=== PATIENT | male | born 1940 | race Caucasian/White ===

== ENCOUNTER → 2019-01-26 | Outpatient (CLI) | payer MEDICARE, BC | END | disposition home or self-care (01) | LOC: RADMRIMAIN 10:40 | PROVIDERS: ATTEND Urology | DX: Z53.9 Procedure and treatment not carried out, unspecified reason (principal) ==

== ENCOUNTER 2020-08-19 10:30 | Emergency (ER) | payer MEDICARE, BC ==
--- NOTE | 2020-08-19 10:41 | ED ---
Fall HPI - General Stated Complaint: Fall, Shoulder Injury Time Seen by Provider: 08/19/20 10:30 Source: RN notes reviewed - History of Present Illness Initial Comments: This is a 79-year-old male who fell today. He complains right shoulder pain and right knee pain. He was brought in by EMS. Pain was 10/10 right shoulder down to about 5/10 after 100 g of fentanyl. He does complain of right shoulder pain and some left elbow pain he has full range of motion left elbow he states. Also of the knee. No head neck or overt back pain at this time no other complaints MD Complaint: fall - Related Data Previous Rx's Medication Instructions Recorded Hydrocodone/Acetaminophen [[place] 1 tab PO Q4HR PRN 3 Days #18 tab 08/19/20 7.5-325] Allergies Allergy/AdvReac Type Severity Reaction Status Date / Time No Known Allergies Allergy Verified 08/19/20 11:12 Review of Systems ROS Statement: Those systems with pertinent positive or pertinent negative responses have been documented in the HPI. ROS Other: All systems not noted in ROS Statement are negative. General Exam - General Exam Comments Initial Comments: This is a well-developed well-nourished awake alert oriented 3 male he demonstrated a [place] Coma Scale of 15 General appearance: alert, anxious Head exam: Present: atraumatic, normocephalic, normal inspection Eye exam: Present: normal appearance, PERRL, EOMI. Absent: scleral icterus, conjunctival injection, periorbital swelling ENT exam: Present: normal exam, mucous membranes moist Neck exam: Present: normal inspection, full ROM. Absent: tenderness, meningismus, lymphadenopathy Respiratory exam: Present: normal lung sounds bilaterally. Absent: respiratory distress, wheezes, rales, rhonchi, stridor Cardiovascular Exam: Present: regular rate, normal rhythm, normal heart sounds. Absent: systolic murmur, diastolic murmur, rubs, gallop, clicks GI/Abdominal exam: Present: soft, normal bowel sounds. Absent: distended, tenderness, guarding, rebound, rigid Extremities exam: Present: tenderness, normal capillary refill, other ([place] left elbow reveals some ecchymosis but no tenderness palpation over the elbow with full range of motion no hand and forearm or arm pain on palpation or shoulder pain. On the right upper extremity there is tenderness palpation over the right shoulder with some anterior fullness noted at ). Absent: pedal edema, joint swelling, calf tenderness Back exam: Present: normal inspection Neurological exam: Present: alert, oriented X3, CN II-XII intact Psychiatric exam: Present: normal affect, normal mood Skin exam: Present: warm, dry, intact, normal color. Absent: rash Course Vital Signs 08/19/20 10:31 Temperature 98.5 F Pulse Rate 84 Respiratory 20 Rate Blood Pressure 137/63 O2 Sat by Pulse 99 Oximetry Medical Decision Making - Medical Decision Making I did discuss findings with patient family also with Dr. Benitez. Patient has good neurovascular evaluation of the right upper extremity he'll be discharged we placed on pain medication as needed for ice and a sling is a follow-up in 2 days in the office with Dr. Benitez. Return parameters were discussed. - Lab Data Result diagrams: 08/19/20 12:03 08/19/20 12:03 Lab Results 08/19/20 08/19/20 Range/Units 12:03 12:03 WBC 9.2 (3.8-10.6) k/uL RBC 4.17 L (4.30-5.90) m/uL Hgb 13.7 (13.0-17.5) gm/dL Hct 43.6 (39.0-53.0) % MCV 104.6 H (80.0-100.0) fL MCH 33.0 (25.0-35.0) pg MCHC 31.5 (31.0-37.0) g/dL RDW 14.4 (11.5-15.5) % Plt Count 211 (150-450) k/uL MPV 7.5 Neutrophils % 89 % Lymphocytes % 7 % Monocytes % 3 % Eosinophils % 0 % Basophils % 0 % Neutrophils # 8.1 H (1.3-7.7) k/uL Lymphocytes # 0.7 L (1.0-4.8) k/uL Monocytes # 0.3 (0-1.0) k/uL Eosinophils # 0.0 (0-0.7) k/uL Basophils # 0.0 (0-0.2) k/uL Macrocytosis Moderate Sodium 140 (137-145) mmol/L Potassium 4.8 (3.5-5.1) mmol/L Chloride 107 (98-107) mmol/L Carbon Dioxide 25 (22-30) mmol/L Anion Gap 8 mmol/L BUN 29 H (9-20) mg/dL Creatinine 1.81 H (0.66-1.25) mg/dL Est GFR (CKD-EPI)AfAm 40 (>60 ml/min/1.73 sqM) Est GFR (CKD-EPI)NonAf 35 (>60 ml/min/1.73 sqM) Glucose 164 H (74-99) mg/dL Calcium 9.1 (8.4-10.2) mg/dL Magnesium 1.9 (1.6-2.3) mg/dL Total Bilirubin 0.5 (0.2-1.3) mg/dL AST 31 (17-59) U/L ALT 16 (4-49) U/L Alkaline Phosphatase 107 (38-126) U/L Creatine Kinase 71 (55-170) U/L Total Protein 6.8 (6.3-8.2) g/dL Albumin 4.1 (3.5-5.0) g/dL - Radiology Data Radiology results: report reviewed (I did review the imaging and report patient does have a proximal humerus fracture displaced. Please see complete report), image reviewed Disposition Clinical Impression: Fall, Closed fracture of right proximal humerus Disposition: HOME SELF-CARE Condition: Good Prescriptions: Hydrocodone/Acetaminophen [[place] 7.5-325] 1 tab PO Q4HR PRN 3 Days #18 tab PRN Reason: Pain Control Is patient prescribed a controlled substance at d/c from ED?: Yes When asked, does pt state using other controlled substances?: No If prescribed controlled substance>3 days was MAPS reviewed?: Prescribed <3 Days If opioid is for acute pain is fill amount 7 days or less?: Yes If Rx opioid, was Start Talking consent form obtained?: Yes Referrals: Rodrigo Louis MD [Primary Care Provider] - 1-2 days Ankush Hernandez MD [STAFF PHYSICIAN] - 1-2 days
[2020-08-19 10:45] VITALS: TEMP 98.5
[2020-08-19] MEDS ORDERED: fentaNYL (PF) 50 MCG/ML 2 ML AMP IVP ONE (11:20)
--- NOTE | 2020-08-19 11:37 | XR ---
Right shoulder HISTORY: Trauma and pain 3 views the right shoulder Right humeral neck fracture is present with displacement, bayonet apposition. No evident dislocation. Arthropathy noted incidentally in the acromioclavicular joint, there is a distal acromial spur. IMPRESSION: Right proximal humerus fracture
--- NOTE | 2020-08-19 12:00 | XR ---
Right knee HISTORY: Trauma and pain 3 views of the right knee Joint spaces notable for loss of height in the medial compartment. There is overlying artifact. Bone mineralization is reduced which could limit evaluation. Alignment is maintained. No evident dislocati on or joint effusion. Atherosclerotic vascular calcifications are present. There is spurring at the p atellofemoral joint. IMPRESSION: Osteoarthritis. No acute fracture or dislocation.
--- NOTE | 2020-08-19 12:03 | XR ---
EXAMINATION TYPE: XR chest 1V DATE OF EXAM: 08/19/2020 COMPARISON: NONE HISTORY: Trauma and pain TECHNIQUE: Single frontal view of the chest is obtained. FINDINGS: Heart is enlarged. Technique is apical lordotic. No evident pneumothorax or pleural effusi on. Proximal right humeral fracture shows bayonet apposition. Pulmonary vascularity and andrew within n ormal limits. Patient is rotated. IMPRESSION: Cardiomegaly. Fracture proximal right humerus. Exam somewhat limited technically.
[2020-08-19 12:10] LABS: Basophils % (A) 0 %; Eosinophils % (A) 0 %; HCT 43.6 % (39.0-53.0); HGB 13.7 gm/dL (13.0-17.5); Lymphocytes # (A) 0.7 k/uL (1.0-4.8); Lymphocytes % (A) 7 %; MCHC 31.5 g/dL (31.0-37.0); MCV 104.6 fL (80.0-100.0); Macrocytosis Moderate; Mean Platelet Volume 7.5; Monocytes # (A) 0.3 k/uL (0-1.0); Monocytes % (A) 3 %; Neutrophils # (A) 8.1 k/uL (1.3-7.7); Neutrophils % (A) 89 %; Platelet Count 211 k/uL (150-450); RBC 4.17 m/uL (4.30-5.90); RDW 14.4 % (11.5-15.5); WBC 9.2 k/uL (3.8-10.6)
[2020-08-19 12:22] LABS: Albumin 4.1 g/dL (3.5-5.0); Calcium 9.1 mg/dL (8.4-10.2); Magnesium 1.9 mg/dL (1.6-2.3); Potassium 4.8 mmol/L (3.5-5.1); Total Bilirubin 0.5 mg/dL (0.2-1.3); Total Protein 6.8 g/dL (6.3-8.2)
[2020-08-19] MEDS ORDERED: ONDANSETRON 4 MG/2 ML VIAL IVP STA (13:00)
[2020-08-19 13:07] VITALS: BP 105/60; PULSE 79; RESP 22
== END 2020-08-19 13:50 | disposition home or self-care (01) ==
LOC: EC 10:30
DX: S42.201A Unspecified fracture of upper end of right humerus, initial encounter for closed fracture (principal); W19.XXXA Unspecified fall, initial encounter
CPT/HCPCS: 36415; 80053; 82550; 83735; 85025; 73030; 73562; 71045; 99284; 96374; 96375; J2405; J3010

== ENCOUNTER 2020-09-12 18:33 | Inpatient (IN) | payer MEDICARE, BC ==
[2020-09-12] MEDS ORDERED: SODIUM CHLORIDE 0.9% 1,000 ML IV STA (19:11)
--- NOTE | 2020-09-12 20:15 | CT ---
EXAMINATION TYPE: CT angio thor/abd pel aorta DATE OF EXAM: 09/12/2020 COMPARISON: None HISTORY: Chest/back pain. Concern for dissection. CT DLP: 2626.4 mGycm Automated exposure control for dose reduction was used. CONTRAST: Performed with IV Contrast, patient injected with 100 mL of Isovue 370. Images obtained of the chest without contrast. Images obtained from the thoracic inlet to the floor t he pelvis with IV contrast. There are 3-D post processed images. There is subsegmental atelectasis at the lung bases. Heart is enlarged. There is no pericardial effus ion. There is no mediastinal adenopathy. There are no hilar masses. There is coronary artery calcification . Thoracic aorta is intact. There is no aneurysm or dissection. I see no evidence of filling defect o f the pulmonary arteries. There is arterial flow in the superior mesenteric artery and the celiac artery. There is arterial timur w in the renal and iliac and femoral arteries. There is no evidence of arterial aneurysm or dissectio n. I see no significant hemodynamic stenosis. There is mild plaque formation. There is symmetric mild renal atrophy. There is 2 similar cortical cyst anterior left kidney. Liver spleen stomach pancreas gallbladder appear intact. The bile ducts are not dilated. There is no retroperitoneal adenopathy. Ureters are not dilated. Bladder distends smoothly. There is no ascites or free air. There is no bowel obstruction. There is no mesenteric edema. Exam limited by patient's size. Thoracic and lumbar vertebra appear intact. There is no compression fracture. The sternum is intact. The bony pelvis appears intact. IMPRESSION: There is mild atherosclerotic vascular disease. No evidence of arterial aneurysm or dissection. No ev idence of pulmonary embolism. Mild renal atrophy. Patchy subsegmental atelectasis at the lung bases..
[2020-09-12] MEDS ORDERED: diphenhydrAMINE 25 MG CAP PO STA (20:42)
[2020-09-12] MEDS ORDERED: FAMOTIDINE 20 MG TAB PO STA (20:42)
[2020-09-12] MEDS ORDERED: SODIUM CHLORIDE 0.9% 1,000 ML IV ONE ×2 (20:43→21:57)
[2020-09-12 21:02] LABS: Basophils % (A) 0 %; Eosinophils % (A) 0 %; HCT 37.4 % (39.0-53.0); HGB 12.5 gm/dL (13.0-17.5); Lymphocytes # (A) 0.4 k/uL (1.0-4.8); Lymphocytes % (A) 4 %; MCH 34.5 pg (25.0-35.0); MCHC 33.4 g/dL (31.0-37.0); MCV 103.3 fL (80.0-100.0); Macrocytosis Slight; Monocytes # (A) 0.6 k/uL (0-1.0); Monocytes % (A) 5 %; Neutrophils # (A) 9.9 k/uL (1.3-7.7); Neutrophils % (A) 90 %; Platelet Count 203 k/uL (150-450); RBC 3.62 m/uL (4.30-5.90); RDW 13.7 % (11.5-15.5)
[2020-09-12 21:19] LABS: Albumin 3.2 g/dL (3.5-5.0); Calcium 8.9 mg/dL (8.4-10.2); Magnesium 1.9 mg/dL (1.6-2.3); Potassium 5.3 mmol/L (3.5-5.1); Total Bilirubin 0.5 mg/dL (0.2-1.3); Total Protein 5.8 g/dL (6.3-8.2)
[2020-09-12 21:20] LABS: INR 0.9 (<1.2)
--- NOTE | 2020-09-12 21:20 | ED ---
Chest Pain HPI - General Chief Complaint: Chest Pain Stated Complaint: back & chest pain Time Seen by Provider: 09/12/20 18:51 Source: patient, EMS Mode of arrival: EMS Limitations: no limitations - History of Present Illness Initial Comments: Patient is an 80-year-old male with past medical history remarkable for hypertension, diabetes, CKD as well as a recent right shoulder fracture who presents to the emergency department complaining of a 5 hour period of time in which is experienced in substernal and mid back pain between the shoulder blades. He describes it as a sharp sensation that does not radiate on the chest. He is also stating that he is having back pain that is sharp and strong, but has resolved somewhat since earlier. He has not taken any medications for pain. Patient has been somewhat debilitated at home secondary to his right arm/shoulder fracture. He denies any shortness of breath. He denies any fevers, chills, cough. States the pain is worse with certain positions and movement. He states it is improved when he sits still. Denies any nausea, abdominal pain. Denies any headache, weakness, numbness. Patient ambulates with a cane at baseline but has been more debilitated since his right shoulder fracture. - Related Data Previous Rx's Medication Instructions Recorded Hydrocodone/Acetaminophen [[place] 1 tab PO Q4HR PRN 3 Days #18 tab 08/19/20 7.5-325] Allergies Allergy/AdvReac Type Severity Reaction Status Date / Time No Known Allergies Allergy Verified 09/12/20 18:50 Review of Systems ROS Statement: Those systems with pertinent positive or pertinent negative responses have been documented in the HPI. Review of Systems: CONST: Denies fever EYES: Denies blurry vision ENT: Denies nasal congestion C/V: Endorses chest pain RESP: Denies shortness of breath GI: Denies abdominal pain : Denies dysuria SKIN: Denies rash. MSK: Endorses back pain NEURO: Denies headache ROS Other: All systems not noted in ROS Statement are negative. EKG Findings - EKG Comments: EKG Findings:: 12-lead Electrocardiogram Interpretation Note. EKG was reviewed and interpreted by myself. 12-lead ECG performed at 1842 is interpreted by me as revealing normal sinus rhythm at a rate of 97 beats per minute. Right axis deviation. MI interval is 170 ms, QRS ration is 76 seconds, QTC is 426 ms.. There were no ST or T wave abnormalities to suggest myocardial ischemia or injury. R wave progression across the precordium was satisfactory. By my interpretation this EKG is non-diagnostic for acute ischemia. - EKG Results: EKG: interpreted by ROSALIO Past Medical History Past Medical History: Diabetes Mellitus, Hypertension, Renal Disease Additional Past Medical History / Comment(s): right humerus fracture History of Any Multi-Drug Resistant Organisms: None Reported Past Surgical History: No Surgical Hx Reported Past Psychological History: No Psychological Hx Reported Smoking Status: Never smoker Past Alcohol Use History: Occasional General Exam - General Exam Comments Initial Comments: Constitutional: Blood pressure was 101/41, pulse was 99, respirations were 18, pulse oximetry was 99% on room air, temperature was 97.6. General: Percent mild to moderate distress secondary to back pain and chest pain. HEAD: Normal with no signs of head trauma. EYES: PERRLA, EOMI, conjunctiva normal, no discharge. ENT: Hearing grossly intact, normal oropharynx. RESPIRATORY: Clear breath sounds bilaterally. No wheezes, rales, or rhonchi. C/V: Regular rate and rhythm. S1 and S2 auscultated, no edema, peripheral pulses 2+ and intact throughout. Patient's chest pain is reproducible on palpation. ABD: Abd is soft, nontender, nondistended EXT: Patient has cast over his right shoulder. Remainder extremities have no obvious deformity. Patient is no cervical spine tenderness to palpation but does have some very mild mid thoracic spine tenderness palpation that radiates into the bilateral paraspinal muscles on either side. No obvious deformity. SKIN: No rashes or lesions observed on exposed skin. NEURO: Alert and oriented 4. No focal sensory strength deficits. Limitations: no limitations Course Vital Signs 09/12/20 09/12/20 09/12/20 18:45 22:23 22:24 Temperature 97.6 F Pulse Rate 99 92 91 Respiratory 18 18 Rate Blood Pressure 101/41 104/58 O2 Sat by Pulse 99 98 Oximetry Chest Pain MDM - Core Measures AMI Core Measures Followed: Yes - MDM Based on the patient's presentation and physical exam, I'm concerned for possible cardiac primary cause for his current symptoms. It is also possible she is expressing muscular skeletal pain. I'm primarily concerned for an aortic dissection especially with his chest pain back pain that was acute in onset. Therefore we will start an IV and obtained a cardiac work up included troponins, EKG and order a CT angiogram of the thoracic and abdominal aorta. I signed off on imaging prior to results of laboratory studies as I believe that the benefits far outweigh the risks. I did speak with the patient regarding this and he was in agreement with this plan. He will receive a 1 L fluid bolus. Patient already received aspirin as well as Toradol on the way to the hospital by EMS. He'll be connected to continuous cardiac monitoring while in the department. Patient was in agreement this plan. HEART score is 5. Patient's EKG is not concerning for acute ischemia. Patient's CT angiogram did not reveal acute aortic dissection. It did reveal mild atherosclerotic vascular disease. There is also mild renal atrophy in the setting of CK D. Laboratory studies were remarkable for a macrocytic anemia told 0.5, a mild leukocytosis of 1.0 which is likely reactive patient does have mild hyperkalemia at 5.3 without EKG changes. Patient has an elevated creatinine above baseline at 2.27. BUN at 65. This is in the setting of CK D, where his baseline is usually around 1.5 creatinine. Urinalysis was unremarkable. Patient's troponin was negative. On reevaluation, patient's blood pressure is improved and stable systolics ranging from 100-110. He states that his pain is improved. I did inform him of the results of his imaging and workup. 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 Patient also receive medications for his acute hyperkalemia. The patient was in agreement with this plan. He did request CPAP at night that placed the order. Patient will require admission to a telemetry bed. The patient's PCP admits to [facility], and I spoke with the PA over the phone who agreed to accept the admission. Patient was administered albuterol, 10 units insulin, 1 amp of D50 as well as Kayexalate for his hyperkalemia. He is not requiring calcium at this time as there are no EKG changes. He was given an additional fluid bolus and will be placed on IV and fluids. The patient was in agreement with this plan. The patient was therefore admitted in fair condition. PT and OT consults were placed by myself. Disposition Clinical Impression: Musculoskeletal pain, Chest pain of unknown etiology, CRISTIAN (acute kidney injury), CKD (chronic kidney disease), Hyperkalemia, Dehydration, Debility, Closed fracture of right proximal humerus Disposition: ADMITTED IP TO THIS HOSP Condition: Fair Referrals: Rodrigo Louis MD [Primary Care Provider] - 1-2 days Decision to Admit Reason: Admit from EC
[2020-09-12 21:21] LABS: Partial Thromboplastin Time 22.4 sec (22.0-30.0); Prothrombin Time 10.1 sec (9.0-12.0)
[2020-09-12 21:37] LABS: Appearance,Urine Clear (Clear); Bilirubin,Urine Negative (Negative); Blood,Urine Negative (Negative); Color,Urine Yellow; Glucose,Urine (UA) Negative (Negative); Ketones,Urine Negative (Negative); Leukocyte Esterase,Urine Negative (Negative); Nitrite,Urine Negative (Negative); Protein,Urine Negative (Negative); Specific Gravity,Urine 1.041 (1.001-1.035); Urobilinogen,Urine <2.0 mg/dL (<2.0)
[2020-09-12] MEDS ORDERED: DEXTROSE 50% SYRINGE 50 ML IVP STA (21:48)
[2020-09-12] MEDS ORDERED: ALBUTEROL NEBULIZED 2.5 MG/3 ML INHALATION STA (21:48)
[2020-09-12] MEDS ORDERED: SODIUM POLYSTYRENE SULFONATE 15 GM/60 ML BOTTLE PO STA (21:48)
[2020-09-12] MEDS ORDERED: INSULIN ASPART (NovoLOG) 100 UNIT/ML VIAL SQ STA (21:50)
[2020-09-12] MEDS ORDERED: NALOXONE 0.4 MG/ML 1 ML VIAL IV PRN (21:57)
[2020-09-13] MEDS ORDERED: Acetaminophen-Codeine 300-30mg TAB PO PRN (00:16)
[2020-09-13] MEDS: ACETAMINOPHEN TAB 325 MG TAB PO PRN ×2 (02:08→08:23)
[2020-09-13 04:53] LABS: Albumin 2.9 g/dL (3.5-5.0); Calcium 8.8 mg/dL (8.4-10.2); Magnesium 1.9 mg/dL (1.6-2.3); Potassium 4.7 mmol/L (3.5-5.1); Total Bilirubin 0.8 mg/dL (0.2-1.3); Total Protein 5.5 g/dL (6.3-8.2)
[2020-09-13 05:43] LABS: Basophils % (A) 0 %; Eosinophils % (A) 0 %; HGB 12.1 gm/dL (13.0-17.5); Lymphocytes # (A) 0.6 k/uL (1.0-4.8); Lymphocytes % (A) 5 %; MCH 34.2 pg (25.0-35.0); MCHC 32.8 g/dL (31.0-37.0); MCV 104.6 fL (80.0-100.0); Macrocytosis Slight; Mean Platelet Volume 6.9; Monocytes # (A) 0.8 k/uL (0-1.0); Monocytes % (A) 7 %; Neutrophils % (A) 87 %; Platelet Count 191 k/uL (150-450); RBC 3.54 m/uL (4.30-5.90); RDW 13.7 % (11.5-15.5); WBC 11.5 k/uL (3.8-10.6)
[2020-09-13 07:02] LABS: Glucose,Whole Blood 141 mg/dL (75-99)
[2020-09-13] MEDS: CHOLECALCIFEROL 25 MCG (1000 IU) TABLET PO SCH (08:20)
[2020-09-13] MEDS: FOLIC ACID 1 MG TAB PO SCH (08:20)
[2020-09-13] MEDS: PIOGLITAZONE 45 MG TAB PO SCH (08:20)
[2020-09-13] MEDS: CYANOCOBALAMIN 500 MCG TAB PO SCH (08:21)
[2020-09-13] MEDS: SODIUM CHLORIDE 0.9% 1,000 ML IV SCH ×2 (08:30→19:41)
[2020-09-13] MEDS ORDERED: NON FORMULARY DRUG (Garlic [Garlic] 1 EACH Tablet) PO SCH (09:00)
[2020-09-13] MEDS ORDERED: amLODIPine 5 MG TAB PO SCH (09:00)
[2020-09-13] MEDS ORDERED: NON FORMULARY DRUG (Cinnamon Bark [Cinnamon] 500 MG Capsule) PO SCH (09:00)
[2020-09-13] MEDS ORDERED: HEPARIN SODIUM,PORCINE/PF 5,000 UNIT/0.5 ML SYRINGE SQ SCH (09:00)
[2020-09-13] MEDS: PRAVASTATIN SODIUM 20 MG TAB PO SCH (09:46)
[2020-09-13] MEDS ORDERED: traMADol 50 MG TAB PO PRN (10:49)
--- NOTE | 2020-09-13 11:14 | US ---
EXAMINATION TYPE: US kidneys/renal and bladder DATE OF EXAM: 09/13/2020 COMPARISON: CT 09/12/2020 CLINICAL HISTORY: CRISTIAN. CRISTIAN Very limited exam due to body habitus and patient unable to roll. EXAM MEASUREMENTS: Right Kidney: 13.5 x 5.0 x 4.8 cm Left Kidney: Unable to visualize due to body habitus patient unable to roll. Right Kidney: Limited Left Kidney: Not able to visualize Bladder: Not fully distended Bilateral Jets seen: NO There is no ascites. IMPRESSION: Exam is limited. No hydronephrosis noted on CT from previous day, left cortical cyst seen on prior CT not confirmed on today's ultrasound. No evident renal calculus.
[2020-09-13 12:08] LABS: Glucose,Whole Blood 150 mg/dL (75-99)
--- NOTE | 2020-09-13 12:12 | P.HPIM ---
History of Present Illness Patient is a pleasant 80-year-old male came in with muscular skeletal chest pain in the right shoulder area radiating across the chest and in the midsternal area and also going to the back which he changes with the movement of the hand. Patient has sharp nonradiating pain. She and pain was moderate severe and today it's much better and about 1/10 today. Patient is basically admitted for the acute renal failure with a serum creatinine of 2.3 patient does have problems with urination does have BPH patient had urinary retention patient had a straight catheterization we'll recheck again in and. Patient is also hyponatremic hypokalemic all of which were can be secondary to acute renal failure and obstructive uropathy. Nephrology was consulted and also ordered a renal ultrasound. Urine osmolality urine random sodium urine random creatinine were ordered as well along with urine eosinophils. UA didn't show any proteinur ia patient baseline creatinine is around 1.8. REVIEW OF SYSTEMS: CONSTITUTIONAL: No fever, no malaise, no fatigue. HEENT: No recent visual problems or hearing problems. Denied any sore throat. CARDIOVASCULAR: No orthopnea, PND, no palpitations, no syncope. PULMONARY: No shortness of breath, no cough, no hemoptysis. GASTROINTESTINAL: No diarrhea, no nausea, no vomiting, no abdominal pain. NEUROLOGICAL: No headaches, no weakness, no numbness. HEMATOLOGICAL: Denies any bleeding or petechiae. GENITOURINARY: Denies any burning micturition, frequency, or urgency. MUSCULOSKELETAL/RHEUMATOLOGICAL: As mentioned in HPI ENDOCRINE: Denies any polyuria or polydipsia. The rest of the 14-point review of systems is negative. PHYSICAL EXAMINATION: GENERAL: The patient is alert and oriented x3, not in any acute distress. Well developed, well nourished. HEENT: Pupils are round and equally reacting to light. EOMI. No scleral icterus. No conjunctival pallor. Normocephalic, atraumatic. No pharyngeal erythema. No thyromegaly. CARDIOVASCULAR: S1 and S2 present. No murmurs, rubs, or gallops. PULMONARY: Chest is clear to auscultation, no wheezing or crackles. ABDOMEN: Soft, nontender, nondistended, normoactive bowel sounds. No palpable organomegaly. MUSCULOSKELETAL: has a right arm sling and patient right shoulder is postsurgical a pack EXTREMITIES: No cyanosis, clubbing, or pedal edema. NEUROLOGICAL: Gross neurological examination did not reveal any focal deficits. SKIN: No rashes. -Right shoulder and right chest pain and musculoskeletal noncardiac will not need any further intervention troponin is negative EKG showed some nonspecific ST-T wave changes in the lateral. -Acute renal failure probably multifactorial including prerenal azotemia as well as the obstructive uropathy patient is also hypotensive hold off any antidepressants medications further workup as mentioned above, ultrasound of the kidneys did not show any significant abnormality patient had a CT abdomen earlier which showed hydronephrosis which improved after probable placement of Nguyen catheter. Nephrology will be consulted, continue with IV fluids -Macrocytic anemia will obtain B12 levels -Hyponatremia hypovolemic as well as secondary to obstructive uropathy -Hyperkalemia secondary to obstructive uropathy -Obstructive sleep apnea and obesity patient uses CPAP machine at home -Type 2 diabetes mellitus -Hypertension presently hypotensive hold hold off on antidepressant medications -DVT to prophylaxis with the heparin Past Medical History Past Medical History: Diabetes Mellitus, Hypertension, Renal Disease Additional Past Medical History / Comment(s): right humerus fracture History of Any Multi-Drug Resistant Organisms: None Reported Past Surgical History: No Surgical Hx Reported Past Anesthesia/Blood Transfusion Reactions: No Reported Reaction Past Psychological History: No Psychological Hx Reported Smoking Status: Never smoker Past Alcohol Use History: Occasional Medications and Allergies Home Medications Medication Instructions Recorded Confirmed Type Allopurinol [Zyloprim] 100 mg PO HS 09/12/20 09/12/20 History Cholecalciferol [Vitamin D3 (25 25 mcg PO DAILY 09/12/20 09/12/20 History Mcg = 1000 Iu)] Cinnamon Bark [Cinnamon] 500 mg PO DAILY 09/12/20 09/12/20 History Cyanocobalamin (Vitamin B-12) 1,000 mcg PO DAILY 09/12/20 09/12/20 History [Vitamin B-12] Folic Acid 0.4 mg PO DAILY 09/12/20 09/12/20 History Garlic 1 tab PO DAILY 09/12/20 09/12/20 History Pioglitazone [Actos] 45 mg PO DAILY 09/12/20 09/12/20 History Pravastatin Sodium [Pravachol] 20 mg PO HS 09/12/20 09/12/20 History Saw [place] 500 mg PO BID 09/12/20 09/12/20 History Selenium 200 mcg PO DAILY 09/12/20 09/12/20 History amLODIPine [Norvasc] 5 mg PO DAILY 09/12/20 09/12/20 History Allergies Allergy/AdvReac Type Severity Reaction Status Date / Time No Known Allergies Allergy Verified 09/12/20 22:46 Physical Exam Vitals: Vital Signs Temp Pulse Pulse Resp BP BP Pulse Ox 09/13/20 08:10 97.7 F 85 95/60 98 09/13/20 08:00 85 09/13/20 07:24 97 09/12/20 23:52 99.8 F H 89 16 111/60 98 09/12/20 23:43 100 09/12/20 22:37 90 09/12/20 22:24 91 09/12/20 22:23 92 18 104/58 98 09/12/20 18:45 97.6 F 99 18 101/41 99 Intake and Output 09/12/20 09/13/20 09/13/20 22:59 06:59 14:59 Intake Total 200 Output Total 450 Balance -250 Intake: Oral 200 Output: Urine 450 Straight 450 Other: Voiding Method Urinal Urinal # Voids 2 Weight 79.832 kg Results CBC & Chem 7: 09/13/20 04:10 09/13/20 04:10 Labs: Abnormal Lab Results - Last 24 Hours (Table) 09/12/20 09/12/20 09/12/20 Range/Units 19:53 19:53 21:17 WBC 11.0 H (3.8-10.6) k/uL RBC 3.62 L (4.30-5.90) m/uL Hgb 12.5 L (13.0-17.5) gm/dL Hct 37.4 L (39.0-53.0) % MCV 103.3 H (80.0-100.0) fL Neutrophils # 9.9 H (1.3-7.7) k/uL Lymphocytes # 0.4 L (1.0-4.8) k/uL Sodium 134 L (137-145) mmol/L Potassium 5.3 H (3.5-5.1) mmol/L BUN 65 H (9-20) mg/dL Creatinine 2.27 H (0.66-1.25) mg/dL Glucose 204 H (74-99) mg/dL POC Glucose (mg/dL) (75-99) mg/dL Total Protein 5.8 L (6.3-8.2) g/dL Albumin 3.2 L (3.5-5.0) g/dL Ur Specific [place] 1.041 H (1.001-1.035) 09/13/20 09/13/20 09/13/20 Range/Units 04:10 04:10 07:01 WBC 11.5 H (3.8-10.6) k/uL RBC 3.54 L (4.30-5.90) m/uL Hgb 12.1 L (13.0-17.5) gm/dL Hct 37.0 L (39.0-53.0) % MCV 104.6 H (80.0-100.0) fL Neutrophils # 10.0 H (1.3-7.7) k/uL Lymphocytes # 0.6 L (1.0-4.8) k/uL Sodium 134 L (137-145) mmol/L Potassium (3.5-5.1) mmol/L BUN 64 H (9-20) mg/dL Creatinine 2.30 H (0.66-1.25) mg/dL Glucose 111 H (74-99) mg/dL POC Glucose (mg/dL) 141 H (75-99) mg/dL Total Protein 5.5 L (6.3-8.2) g/dL Albumin 2.9 L (3.5-5.0) g/dL Ur Specific [employer] [place] (1.001-1.035) Thrombosis Risk Factor Assmnt - Choose All That Apply Each Factor Represents 1 point: Obesity (BMI >25) Each Risk Factor Represents 3 Points: Age 75 years or older Thrombosis Risk Factor Assessment Total Risk Factor Score: 4 Thrombosis Risk Factor Assessment Level: Moderate Risk
[2020-09-13 17:49] LABS: Glucose,Whole Blood 142 mg/dL (75-99)
[2020-09-13 20:37] LABS: Glucose,Whole Blood 171 mg/dL (75-99)
[2020-09-13] MEDS: HEPARIN SODIUM,PORCINE/PF 5,000 UNIT/0.5 ML SYRINGE SQ SCH (20:41)
[2020-09-13] MEDS: allopurinoL 100 MG TAB PO SCH (20:42)
[2020-09-13] MEDS: MELATONIN 3 MG TABLET PO PRN (20:42)
[2020-09-14] MEDS: SODIUM CHLORIDE 0.9% 1,000 ML IV SCH (04:22)
[2020-09-14 07:23] LABS: Glucose,Whole Blood 129 mg/dL (75-99)
[2020-09-14] MEDS: HEPARIN SODIUM,PORCINE/PF 5,000 UNIT/0.5 ML SYRINGE SQ SCH ×2 (08:19→20:21)
[2020-09-14] MEDS: FOLIC ACID 1 MG TAB PO SCH (08:20)
[2020-09-14] MEDS: PIOGLITAZONE 45 MG TAB PO SCH (08:20)
[2020-09-14] MEDS: PRAVASTATIN SODIUM 20 MG TAB PO SCH (08:20)
[2020-09-14] MEDS: CYANOCOBALAMIN 500 MCG TAB PO SCH (08:20)
[2020-09-14] MEDS: CHOLECALCIFEROL 25 MCG (1000 IU) TABLET PO SCH (08:20)
--- NOTE | 2020-09-14 10:26 | P.NPCON ---
History of Present Illness - Reason for Consult acute renal failure, chronic renal failure - History of Present Illness Reason for sedation: Acute kidney injury on chronic kidney disease History of present illness: The patient is a 80-year-old male seen in consultation for acute kidney injury on chronic kidney disease. Patient has chronic kidney disease stage IIIB with baseline creatinine near 2 secondary to nephrosclerosis. Patient presented to the hospital with pain in his upper back this been going on for quite some time. Patient did sustain a fall on and fractured his arm. He underwent thoracic aorta CT with IV contrast on admission which revealed no acute changes. Creatinine was 2.27 on admission and 2.3 as of yesterday. He is maintained on IV fluids. Denies chest pain or shortness of breath. Good urine output. He did require straight catheterization this admission. Oral intake is fair. No vomiting or diarrhea. Blood pressure stable. No fever or chills. No cough. Denies use of nonsteroidals. He does have long-standing history of diabetes. Vital signs are stable. General: The patient appeared well nourished and normally developed. HEENT: Head exam is unremarkable. Neck is without jugular venous distension. LUNGS: Breath sounds decreased. HEART: Rate and Rhythm are regular. ABDOMEN: Soft, no distention. Obese. EXTREMITITES: Trace edema. Past Medical History Past Medical History: Diabetes Mellitus, Hypertension, Renal Disease Additional Past Medical History / Comment(s): right humerus fracture History of Any Multi-Drug Resistant Organisms: None Reported Past Surgical History: No Surgical Hx Reported Past Anesthesia/Blood Transfusion Reactions: No Reported Reaction Past Psychological History: No Psychological Hx Reported Smoking Status: Never smoker Past Alcohol Use History: Occasional Medications and Allergies Home Medications Medication Instructions Recorded Confirmed Type Allopurinol [Zyloprim] 100 mg PO HS 09/12/20 09/12/20 History Cholecalciferol [Vitamin D3 (25 25 mcg PO DAILY 09/12/20 09/12/20 History Mcg = 1000 Iu)] Cinnamon Bark [Cinnamon] 500 mg PO DAILY 09/12/20 09/12/20 History Cyanocobalamin (Vitamin B-12) 1,000 mcg PO DAILY 09/12/20 09/12/20 History [Vitamin B-12] Folic Acid 0.4 mg PO DAILY 09/12/20 09/12/20 History Garlic 1 tab PO DAILY 09/12/20 09/12/20 History Pioglitazone [Actos] 45 mg PO DAILY 09/12/20 09/12/20 History Pravastatin Sodium [Pravachol] 20 mg PO HS 09/12/20 09/12/20 [address] [facility] 500 mg PO BID 09/12/20 09/12/20 History Selenium 200 mcg PO DAILY 09/12/20 09/12/20 History amLODIPine [Norvasc] 5 mg PO DAILY 09/12/20 09/12/20 History Furosemide [Lasix] 20 mg PO DAILY 09/13/20 09/13/20 History Allergies Allergy/AdvReac Type Severity Reaction Status Date / Time No Known Allergies Allergy Verified 09/12/20 22:46 Physical Exam Vitals: Vital Signs Temp Pulse Resp BP Pulse Ox 09/14/20 07:00 98.0 F 91 21 112/66 97 09/14/20 02:00 98.3 F 87 18 101/58 100 09/13/20 20:09 97 09/13/20 20:00 98.5 F 91 17 83/40 94 L 09/13/20 15:00 97.8 F 85 16 93/54 100 Intake and Output 09/13/20 09/14/20 09/14/20 22:59 06:59 14:59 Intake Total 1000 800 180 Output Total 350 200 Balance 650 800 -20 Intake: IV 800 800 Sodium Chloride 0.9% 1, 800 800 000 ml @ 100 mls/hr IV . Q10H ONE Rx#:[id number] Oral 200 180 Output: Urine 350 200 Other: Voiding Method Urinal Urinal # Voids 2 2 Results - Lab Results Most recent lab results Calcium 8.8 mg/dL (8.4-10.2) 09/13/20 04:10 Magnesium 1.9 mg/dL (1.6-2.3) 09/13/20 04:10 09/13/20 04:10 09/13/20 04:10 Assessment and Plan Plan: Assessment: 1. Acute kidney injury versus progression of underlying chronic kidney disease. Patient has chronic kidney disease stage IIIB secondary to nephrosclerosis.. Baseline creatinine near 2. Creatinine 2.3 as of yesterday. He did receive IV contrast on September 12. He did have urinary retention this admission requiring straight catheterization. No evidence of hydronephrosis noted on imaging. UA benign. 2. Diabetes mellitus. 3. Shoulder pain. He did sustain a fall at and sustained right arm fracture. No evidence of aneurysm on thoracic CT. Plan: Hep-Lock IV fluids. Encourage oral intake. Avoid nephrotoxins. Monitor renal function as he received IV contrast on September 12. Continue to monitor serial postvoid residuals to make sure no urinary retention. Thank you for the consultation. I will continue to follow the patient with you during his hospital stay.
[2020-09-14 10:59] LABS: African American GFR (CKD) 31.6 (60.0-200.0); Anion Gap 6.4 mmol/L (4.00-12.00); BUN/Creat Ratio 27.27 Ratio (12.00-20.00); Calcium 7.8 mg/dL (8.7-10.3); Carbon Dioxide 22.6 mmol/L (21.6-31.8); Non-African American GFR(CKD) 27.3 (60.0-200.0); Potassium 4.8 mmol/L (3.5-5.5)
[2020-09-14 11:51] LABS: Glucose,Whole Blood 141 mg/dL (75-99)
[2020-09-14] MEDS: ONDANSETRON 4 MG/2 ML VIAL IVP PRN (17:10)
[2020-09-14 17:19] LABS: Glucose,Whole Blood 142 mg/dL (75-99)
[2020-09-14] MEDS ORDERED: MAGNESIUM HYDROXIDE 2,400 MG/10 ML CUP PO PRN (17:55)
[2020-09-14] MEDS: MELATONIN 3 MG TABLET PO PRN (20:21)
[2020-09-14] MEDS: allopurinoL 100 MG TAB PO SCH (20:21)
[2020-09-14 20:28] LABS: Glucose,Whole Blood 208 mg/dL (75-99)
[2020-09-15] MEDS: ONDANSETRON 4 MG/2 ML VIAL IVP PRN (01:56)
[2020-09-15 07:21] LABS: Glucose,Whole Blood 154 mg/dL (75-99)
[2020-09-15] MEDS: CHOLECALCIFEROL 25 MCG (1000 IU) TABLET PO SCH (07:56)
[2020-09-15] MEDS: FOLIC ACID 1 MG TAB PO SCH (07:56)
[2020-09-15] MEDS: PRAVASTATIN SODIUM 20 MG TAB PO SCH (07:57)
[2020-09-15] MEDS: HEPARIN SODIUM,PORCINE/PF 5,000 UNIT/0.5 ML SYRINGE SQ SCH ×2 (07:57→21:15)
[2020-09-15] MEDS: PIOGLITAZONE 45 MG TAB PO SCH (07:57)
[2020-09-15] MEDS: CYANOCOBALAMIN 500 MCG TAB PO SCH (07:57)
[2020-09-15 09:20] LABS: Basophils # (A) 0.02 X 10*3/uL (0.00-0.10); Basophils % (A) 0.3 %; Eosinophils # (A) 0.13 X 10*3/uL (0.04-0.35); HCT 34.6 % (39.6-50.0); HGB 11.3 g/dL (13.0-17.0); Lymphocytes # (A) 0.81 X 10*3/uL (0.90-5.00); Lymphocytes % (A) 12.5 %; MCH 34.2 pg (27.0-32.0); MCHC 32.7 g/dL (32.0-37.0); MCV 104.8 fL (80.0-97.0); Mean Platelet Volume 10.3 fL (9.5-12.2); Monocytes # (A) 0.47 X 10*3/uL (0.20-1.00); Monocytes % (A) 7.3 %; Neutrophils % (A) 77.3 %; Platelet Count 208 X 10*3/uL (140-440); RDW 14.4 % (11.5-14.5); WBC 6.47 X 10*3/uL (4.50-10.00)
[2020-09-15 11:53] LABS: Glucose,Whole Blood 132 mg/dL (75-99)
[2020-09-15 13:40] LABS: African American GFR (CKD) 37 (>60 ml/min/1.73 sqM); Anion Gap 7 mmol/L; Blood Urea Nitrogen 67 mg/dL (9-20); Calcium 8.8 mg/dL (8.4-10.2); Carbon Dioxide 22 mmol/L (22-30); Chloride 104 mmol/L (98-107); Glucose 156 mg/dL (74-99); Non-African American GFR(CKD) 32 (>60 ml/min/1.73 sqM); Potassium 4.9 mmol/L (3.5-5.1); Sodium 133 mmol/L (137-145)
[2020-09-15 14:31] LABS: Basophils % (A) 0 %; Eosinophils # (A) 0.1 k/uL (0-0.7); Eosinophils % (A) 2 %; HCT 34.1 % (39.0-53.0); HGB 11.4 gm/dL (13.0-17.5); Lymphocytes # (A) 0.7 k/uL (1.0-4.8); Lymphocytes % (A) 12 %; MCH 34.6 pg (25.0-35.0); MCHC 33.4 g/dL (31.0-37.0); MCV 103.7 fL (80.0-100.0); Macrocytosis Slight; Mean Platelet Volume 7.1; Monocytes # (A) 0.3 k/uL (0-1.0); Monocytes % (A) 4 %; Neutrophils # (A) 4.7 k/uL (1.3-7.7); Neutrophils % (A) 80 %; Platelet Count 197 k/uL (150-450); RBC 3.29 m/uL (4.30-5.90); RDW 13.6 % (11.5-15.5); WBC 5.9 k/uL (3.8-10.6)
--- NOTE | 2020-09-15 14:58 | P.PN ---
Subjective Progress Note Date: 09/14/20 Principal diagnosis: Right shoulder and right chest pain and musculoskeletal noncardiac Acute renal failure probably multifactorial Hyperkalemia secondary to obstructive uropathy Hyponatremia hypovolemic 80-year-old male came in with muscular skeletal chest pain in the right shoulder area radiating across the chest and in the midsternal area and also going to the back which he changes with the movement of the hand. Patient has sharp nonradiating pain. She and pain was moderate severe and today it's much better and about 1/10 today. Patient is basically admitted for the acute renal failure with a serum creatinine of 2.3 patient does have problems with urination does have BPH patient had urinary retention patient had a straight catheterizati on we'll recheck again in and. Patient is also hyponatremic hypokalemic all of which were can be secondary to acute renal failure and obstructive uropathy. Nephrology was consulted and also ordered a renal ultrasound. Urine osmolality urine random sodium urine random creatinine were ordered as well along with urine eosinophils. UA didn't show any proteinuria patient baseline creatinine is around 1.8. Objective - Vital Signs Vital signs: Vital Signs Temp 97.8 F 09/14/20 14:56 Pulse 90 09/14/20 14:56 Resp 20 09/14/20 14:56 BP 122/67 09/14/20 14:56 Pulse Ox 97 09/14/20 14:56 Intake & Output 09/13/20 09/14/20 09/14/20 18:59 06:59 18:59 Intake Total 640 1600 360 Output Total 1450 500 Balance -810 1600 -140 Intake: IV 1600 Sodium Chloride 0.9% 1, 1600 000 ml @ 100 mls/hr IV . Q10H ONE Rx#:[id number] Oral 640 360 Output: Urine 1450 500 Straight 450 Other: Voiding Method Urinal Urinal Urinal # Voids 2 - Exam GENERAL: The patient is alert and oriented x3, not in any acute distress. Well developed, well nourished. HEENT: Pupils are round and equally reacting to light. EOMI. No scleral icterus. No conjunctival pallor. Normocephalic, atraumatic. No pharyngeal erythema. No thyromegaly. CARDIOVASCULAR: S1 and S2 present. No murmurs, rubs, or gallops. PULMONARY: Chest is clear to auscultation, no wheezing or crackles. ABDOMEN: Soft, nontender, nondistended, normoactive bowel sounds. No palpable organomegaly. MUSCULOSKELETAL: has a right arm sling and patient right shoulder is postsurgical a pack EXTREMITIES: No cyanosis, clubbing, or pedal edema. NEUROLOGICAL: Gross neurological examination did not reveal any focal deficits. SKIN: No rashes. - Labs CBC & Chem 7: 09/15/20 13:49 09/15/20 13:15 Labs: Abnormal Lab Results - Last 24 Hours (Table) 09/13/20 09/13/20 09/14/20 Range/Units 17:47 20:36 04:53 BUN 60.0 H (9.0-27.0) mg/dL Creatinine 2.2 H (0.6-1.5) mg/dL Est GFR (CKD-EPI)AfAm 31.6 L (60.0-200.0) Est GFR (CKD-EPI)NonAf 27.3 L (60.0-200.0) BUN/Creatinine Ratio 27.27 H (12.00-20.00) Ratio Glucose 123 H (70-110) mg/dL POC Glucose (mg/dL) 142 H 171 H (75-99) mg/dL Calcium 7.8 L (8.7-10.3) mg/dL 09/14/20 09/14/20 Range/Units 07:21 11:47 BUN (9.0-27.0) mg/dL Creatinine (0.6-1.5) mg/dL Est GFR (CKD-EPI)AfAm (60.0-200.0) Est GFR (CKD-EPI)NonAf (60.0-200.0) BUN/Creatinine Ratio (12.00-20.00) Ratio Glucose (70-110) mg/dL POC Glucose (mg/dL) 129 H 141 H (75-99) mg/dL Calcium (8.7-10.3) mg/dL Assessment and Plan Assessment: -Right shoulder and right chest pain and musculoskeletal noncardiac will not need any further intervention troponin is negative EKG showed some nonspecific ST-T wave changes in the lateral. -Acute renal failure probably multifactorial including prerenal azotemia as well as the obstructive uropathy patient is also hypotensive hold off any antidepressants medications further workup as mentioned above, ultrasound of the kidneys did not show any significant abnormality patient had a CT abdomen earlier which showed hydronephrosis which improved after probable placement of Nguyen catheter. Nephrology will be consulted, continue with IV fluids -Macrocytic anemia will obtain B12 levels -Hyponatremia hypovolemic as well as secondary to obstructive uropathy -Hyperkalemia secondary to obstructive uropathy -Obstructive sleep apnea and obesity patient uses CPAP machine at home -Type 2 diabetes mellitus -Hypertension presently hypotensive hold hold off on antidepressant medications -DVT to prophylaxis with the heparin
--- NOTE | 2020-09-15 15:01 | PN ---
PROGRESS NOTE Patient is seen for followup for chronic kidney disease and acute kidney injury. His serum creatinine has improved to 1.9 from 2.3. Previous creatinine has been at about 1.5-1.8 mg/dL. The patient is currently not on any IV fluids or diuretics. He is voiding in a urinal. A 24 hour output documented 1.4 L. PHYSICAL EXAMINATION: On examination today, blood pressure 116/71, heart rate 101 per minute, he is afebrile. Examination of the heart S1, S2. Examination of the lungs, bilateral breath sounds are heard. Abdomen is soft, nontender. Examination of lower extremities shows edema 1+ bilaterally. HARDBOARD GRINDER exam grossly intact. LAB: Show hemoglobin 11.4, sodium 133, potassium 4.9, BUN 67, creatinine 1.9. ASSESSMENT: 1. Acute kidney injury which is quite mild. Renal function back to baseline. Serum creatinine has been 1.8 in June as well. The patient did receive IV contrast on September 12 and has had urine retention requiring straight catheterization. Ultrasound does not show any hydronephrosis. No nephrotoxic agents on board. We will continue off IV fluids as he is mildly volume overloaded. 2. Type 2 diabetes. 3. Right shoulder pain status post fall and right arm fracture. PLAN: Continue to avoid nephrotoxic agents. Avoid hypotension. Repeat labs in a.m. Will resume oral diuretics tomorrow. The patient was on 20 mg of Lasix daily at home prior to admission. MMODL / IJN: [id number] /
[2020-09-15 17:23] LABS: Glucose,Whole Blood 138 mg/dL (75-99)
[2020-09-15 20:28] LABS: Glucose,Whole Blood 182 mg/dL (75-99)
[2020-09-15] MEDS: MELATONIN 3 MG TABLET PO PRN (21:15)
[2020-09-15] MEDS: allopurinoL 100 MG TAB PO SCH (21:15)
[2020-09-16 07:38] LABS: Glucose,Whole Blood 126 mg/dL (75-99)
[2020-09-16] MEDS: CYANOCOBALAMIN 500 MCG TAB PO SCH (07:54)
[2020-09-16] MEDS: FOLIC ACID 1 MG TAB PO SCH (07:54)
[2020-09-16] MEDS: HEPARIN SODIUM,PORCINE/PF 5,000 UNIT/0.5 ML SYRINGE SQ SCH ×2 (07:54→20:24)
[2020-09-16] MEDS: CHOLECALCIFEROL 25 MCG (1000 IU) TABLET PO SCH (07:54)
[2020-09-16] MEDS: PRAVASTATIN SODIUM 20 MG TAB PO SCH (07:55)
[2020-09-16] MEDS: PIOGLITAZONE 45 MG TAB PO SCH (07:55)
[2020-09-16 09:27] LABS: HCT 32.3 % (39.6-50.0); HGB 10.3 g/dL (13.0-17.0); MCHC 31.9 g/dL (32.0-37.0); MCV 106.6 fL (80.0-97.0); Mean Platelet Volume 10.5 fL (9.5-12.2); Platelet Count 211 X 10*3/uL (140-440); RBC 3.03 X 10*6/uL (4.40-5.60); RDW 14.3 % (11.5-14.5); WBC 6.04 X 10*3/uL (4.50-10.00)
[2020-09-16 10:28] LABS: Basophils # (A) 0.04 X 10*3/uL (0.00-0.10); Basophils % (A) 0.7 %; Eosinophils # (A) 0.25 X 10*3/uL (0.04-0.35); Eosinophils % (A) 4.1 %; Lymphocytes % (A) 18.2 %; Monocytes # (A) 0.41 X 10*3/uL (0.20-1.00); Monocytes % (A) 6.8 %; Neutrophils # (A) 4.17 X 10*3/uL (1.80-7.70)
[2020-09-16 10:29] LABS: Macrocytosis (M) 2+
[2020-09-16 10:31] LABS: African American GFR (CKD) 40.3 (60.0-200.0); Anion Gap 6.5 mmol/L (4.00-12.00); BUN/Creat Ratio 27.78 Ratio (12.00-20.00); Calcium 8.6 mg/dL (8.7-10.3); Carbon Dioxide 23.5 mmol/L (21.6-31.8); Non-African American GFR(CKD) 34.8 (60.0-200.0); Potassium 4.6 mmol/L (3.5-5.5)
[2020-09-16 12:09] LABS: Glucose,Whole Blood 140 mg/dL (75-99)
--- NOTE | 2020-09-16 13:38 | PN ---
PROGRESS NOTE Patient is seen for followup for acute kidney injury. Renal function has improved with creatinine down to 1.8 from 2.27 on initial admission. The patient is currently not on any IV fluids or diuretics. He has been eating fairly well. He has been voiding in a urinal. PHYSICAL EXAMINATION: On examination today, blood pressure 115/68, heart rate 94 per minute. He is afebrile. Examination of the heart S1, S2. Examination of the lungs, bilateral breath sounds are heard. Abdomen is soft, nontender. Examination of lower extremities shows no evidence of edema. FLORIST exam grossly intact. LAB: Show hemoglobin 10.3, sodium 138, potassium 4.6, BUN 50, creatinine 1.8. ASSESSMENT: 1. Acute kidney injury, currently possibly prerenal, currently not on any IV fluids or diuretics. Renal function continues to improve. He did have urine retention and has required straight catheterization. Ultrasound does not show any hydronephrosis. 2. Patient also had IV contrast on 09/12/2020. Continue to monitor his renal function. So far, creatinine continues to decrease. 3. Type 2 diabetes. 4. Right shoulder pain status post fall and right arm fracture. PLAN: Resume home dose of loop diuretics. Encourage increased oral intake. Repeat labs in a.m. MMODL / IJN: [id number] /
--- NOTE | 2020-09-16 16:33 | P.PN ---
Subjective Progress Note Date: 09/15/20 Principal diagnosis: Right shoulder and right chest pain and musculoskeletal noncardiac Acute renal failure probably multifactorial Hyperkalemia secondary to obstructive uropathy Hyponatremia hypovolemic 80-year-old male came in with muscular skeletal chest pain in the right shoulder area radiating across the chest and in the midsternal area and also going to the back which he changes with the movement of the hand. Patient has sharp nonradiating pain. She and pain was moderate severe and today it's much better and about 1/10 today. Patient is basically admitted for the acute renal failure with a serum creatinine of 2.3 patient does have problems with urination does have BPH patient had urinary retention patient had a straight catheterizati on we'll recheck again in and. Patient is also hyponatremic hypokalemic all of which were can be secondary to acute renal failure and obstructive uropathy. Nephrology was consulted and also ordered a renal ultrasound. Urine osmolality urine random sodium urine random creatinine were ordered as well along with urine eosinophils. UA didn't show any proteinuria patient baseline creatinine is around 1.8. 09/15/2020 Patient is seen and evaluated for follow-up; complains of episodes of nausea and vomiting. Denies any further chest pain or shortness of breath Vital signs are stable with a temperature of 98.6 pulse 101 respiration 18 and blood pressure 116/75 Lab review shows a BUN of 67 with creatinine of 1.9; sodium 133 and potassium of 4.9 Nephrology on board and recommending to continue to monitor renal function off of IV fluids secondary to mild volume overload; renal ultrasound is unremarkable for any hydronephrosis Objective - Vital Signs Vital signs: Vital Signs Temp 97.9 F 09/15/20 07:00 Pulse 101 H 09/15/20 07:00 Resp 16 09/15/20 08:00 BP 116/71 09/15/20 07:00 Pulse Ox 98 09/15/20 07:42 Intake & Output 09/14/20 09/15/20 09/15/20 18:59 06:59 18:59 Intake Total 360 250 Output Total 800 630 Balance -440 -630 250 Intake: Oral 360 250 Output: Urine 800 430 Emesis 200 Other: Voiding Method Urinal Urinal Urinal # Voids 1 2 # Bowel Movements 1 - Exam GENERAL: The patient is alert and oriented x3, not in any acute distress. Well developed, well nourished. HEENT: Pupils are round and equally reacting to light. EOMI. No scleral icterus. No conjunctival pallor. Normocephalic, atraumatic. No pharyngeal erythema. No thyromegaly. CARDIOVASCULAR: S1 and S2 present. No murmurs, rubs, or gallops. PULMONARY: Chest is clear to auscultation, no wheezing or crackles. ABDOMEN: Soft, nontender, nondistended, normoactive bowel sounds. No palpable organomegaly. MUSCULOSKELETAL: has a right arm sling and patient right shoulder is postsurgical a pack EXTREMITIES: No cyanosis, clubbing, or pedal edema. NEUROLOGICAL: Gross neurological examination did not reveal any focal deficits. SKIN: No rashes. - Labs CBC & Chem 7: 09/16/20 05:07 09/16/20 05:07 Labs: Abnormal Lab Results - Last 24 Hours (Table) 09/14/20 09/14/20 09/15/20 Range/Units 17:18 20:19 06:19 RBC 3.30 L (4.40-5.60) X 10*6/uL Hgb 11.3 L (13.0-17.0) g/dL Hct 34.6 L (39.6-50.0) % MCV 104.8 H (80.0-97.0) fL MCH 34.2 H (27.0-32.0) pg Lymphocytes # 0.81 L (0.90-5.00) X 10*3/uL POC Glucose (mg/dL) 142 H 208 H (75-99) mg/dL 09/15/20 09/15/20 Range/Units 07:00 11:51 RBC (4.40-5.60) X 10*6/uL Hgb (13.0-17.0) g/dL Hct (39.6-50.0) % MCV (80.0-97.0) fL MCH (27.0-32.0) pg Lymphocytes # (0.90-5.00) X 10*3/uL POC Glucose (mg/dL) 154 H 132 H (75-99) mg/dL Assessment and Plan Assessment: -Right shoulder and right chest pain and musculoskeletal noncardiac will not need any further intervention troponin is negative EKG showed some nonspecific ST-T wave changes in the lateral. -Acute renal failure probably multifactorial including prerenal azotemia as well as the obstructive uropathy patient is also hypotensive hold off any antidepressants medications further workup as mentioned above, ultrasound of the kidneys did not show any significant abnormality patient had a CT abdomen earlier which showed hydronephrosis which improved after probable placement of Nguyen catheter. Nephrology will be consulted, continue with IV fluids -Macrocytic anemia will obtain B12 levels -Hyponatremia hypovolemic as well as secondary to obstructive uropathy -Hyperkalemia secondary to obstructive uropathy -Obstructive sleep apnea and obesity patient uses CPAP machine at home -Type 2 diabetes mellitus -Hypertension presently hypotensive hold hold off on antidepressant medications -DVT to prophylaxis with the heparin
--- NOTE | 2020-09-16 16:37 | P.PN ---
Subjective Progress Note Date: 09/16/20 Principal diagnosis: Right shoulder and right chest pain and musculoskeletal noncardiac Acute renal failure probably multifactorial Hyperkalemia secondary to obstructive uropathy Hyponatremia hypovolemic 80-year-old male came in with muscular skeletal chest pain in the right shoulder area radiating across the chest and in the midsternal area and also going to the back which he changes with the movement of the hand. Patient has sharp nonradiating pain. She and pain was moderate severe and today it's much better and about 1/10 today. Patient is basically admitted for the acute renal failure with a serum creatinine of 2.3 patient does have problems with urination does have BPH patient had urinary retention patient had a straight catheterizati on we'll recheck again in and. Patient is also hyponatremic hypokalemic all of which were can be secondary to acute renal failure and obstructive uropathy. Nephrology was consulted and also ordered a renal ultrasound. Urine osmolality urine random sodium urine random creatinine were ordered as well along with urine eosinophils. UA didn't show any proteinuria patient baseline creatinine is around 1.8. 09/15/2020 Patient is seen and evaluated for follow-up; complains of episodes of nausea and vomiting. Denies any further chest pain or shortness of breath Vital signs are stable with a temperature of 98.6 pulse 101 respiration 18 and blood pressure 116/75 Lab review shows a BUN of 67 with creatinine of 1.9; sodium 133 and potassium of 4.9 Nephrology on board and recommending to continue to monitor renal function off of IV fluids secondary to mild volume overload; renal ultrasound is unremarkable for any hydronephrosis 09/16/2020 Patient is seen and evaluated sitting up in bed with at bedside; reports a 3 field night without any complaint of nausea vomiting Vital signs remained stable and patient remains afebrile blood pressure 115/68, pulse of 94 with respirations 16; SpO2 of 95% Lab review shows sodium of 138, potassium 4.6, BUN/creatinine of 50/1.8 Renal function improving without any fluids; diuretics have been on hold so far; nephrology on board and recommending to resume home dose of loop diuretics and encourage increase oral fluid intake; monitor renal function Skin closely Objective - Vital Signs Vital signs: Vital Signs Temp 98.7 F 09/16/20 13:45 Pulse 96 06/27/21 14:00 Resp 14 09/16/20 14:00 BP 124/70 09/16/20 13:45 Pulse Ox 100 09/16/20 13:45 Intake & Output 09/15/20 09/16/20 09/16/20 18:59 06:59 18:59 Intake Total 250 Output Total 865 Balance 250 -865 Intake: Oral 250 Output: Urine 865 Other: Voiding Method Urinal Urinal Urinal # Voids 4 1 4 # Bowel Movements 0 0 - Exam GENERAL: The patient is alert and oriented x3, not in any acute distress. Well developed, well nourished. HEENT: Pupils are round and equally reacting to light. EOMI. No scleral icterus. No conjunctival pallor. Normocephalic, atraumatic. No pharyngeal erythema. No thyromegaly. CARDIOVASCULAR: S1 and S2 present. No murmurs, rubs, or gallops. PULMONARY: Chest is clear to auscultation, no wheezing or crackles. ABDOMEN: Soft, nontender, nondistended, normoactive bowel sounds. No palpable organomegaly. MUSCULOSKELETAL: has a right arm sling and patient right shoulder is postsurgical a pack EXTREMITIES: No cyanosis, clubbing, or pedal edema. NEUROLOGICAL: Gross neurological examination did not reveal any focal deficits. SKIN: No rashes. - Labs CBC & Chem 7: 09/16/20 05:07 09/16/20 05:07 Labs: Abnormal Lab Results - Last 24 Hours (Table) 09/15/20 09/15/20 09/16/20 Range/Units 17:21 20:27 05:07 RBC 3.03 L (4.40-5.60) X 10*6/uL Hgb 10.3 L (13.0-17.0) g/dL Hct 32.3 L (39.6-50.0) % MCV 106.6 H (80.0-97.0) fL MCH 34.0 H (27.0-32.0) pg MCHC 31.9 L (32.0-37.0) g/dL Immature Gran # 0.07 H (0.00-0.04) X 10*3/uL BUN (9.0-27.0) mg/dL Creatinine (0.6-1.5) mg/dL Est GFR (CKD-EPI)AfAm (60.0-200.0) Est GFR (CKD-EPI)NonAf (60.0-200.0) BUN/Creatinine Ratio (12.00-20.00) Ratio Glucose (70-110) mg/dL POC Glucose (mg/dL) 138 H 182 H (75-99) mg/dL Calcium (8.7-10.3) mg/dL 09/16/20 09/16/20 09/16/20 Range/Units 05:07 07:20 12:04 RBC (4.40-5.60) X 10*6/uL Hgb (13.0-17.0) g/dL Hct (39.6-50.0) % MCV (80.0-97.0) fL MCH (27.0-32.0) pg MCHC (32.0-37.0) g/dL Immature Gran # (0.00-0.04) X 10*3/uL BUN 50.0 H (9.0-27.0) mg/dL Creatinine 1.8 H (0.6-1.5) mg/dL Est GFR (CKD-EPI)AfAm 40.3 L (60.0-200.0) Est GFR (CKD-EPI)NonAf 34.8 L (60.0-200.0) BUN/Creatinine Ratio 27.78 H (12.00-20.00) Ratio Glucose 138 H (70-110) mg/dL POC Glucose (mg/dL) 126 H 140 H (75-99) mg/dL Calcium 8.6 L (8.7-10.3) mg/dL Assessment and Plan Assessment: -Right shoulder and right chest pain and musculoskeletal noncardiac will not need any further intervention troponin is negative EKG showed some nonspecific ST-T wave changes in the lateral. -Acute renal failure probably multifactorial including prerenal azotemia as well as the obstructive uropathy patient is also hypotensive hold off any antidepressants medications further workup as mentioned above, ultrasound of the kidneys did not show any significant abnormality patient had a CT abdomen earlier which showed hydronephrosis which improved after probable placement of Nguyen catheter. Nephrology will be consulted, continue with IV fluids -Macrocytic anemia will obtain B12 levels -Hyponatremia hypovolemic as well as secondary to obstructive uropathy -Hyperkalemia secondary to obstructive uropathy -Obstructive sleep apnea and obesity patient uses CPAP machine at home -Type 2 diabetes mellitus -Hypertension presently hypotensive hold hold off on antidepressant medications -DVT to prophylaxis with the heparin
[2020-09-16 17:18] LABS: Glucose,Whole Blood 155 mg/dL (75-99)
[2020-09-16] MEDS: MELATONIN 3 MG TABLET PO PRN (20:23)
[2020-09-16] MEDS: allopurinoL 100 MG TAB PO SCH (20:24)
[2020-09-16 20:40] LABS: Glucose,Whole Blood 187 mg/dL (75-99)
[2020-09-16] MEDS: ONDANSETRON 4 MG/2 ML VIAL IVP PRN (22:04)
[2020-09-17] MEDS: SODIUM CHLORIDE 0.9% 1,000 ML IV SCH ×2 (02:11→11:58)
[2020-09-17 06:34] LABS: Basophils % (A) 1 %; Eosinophils # (A) 0.2 k/uL (0-0.7); Eosinophils % (A) 4 %; HCT 30.6 % (39.0-53.0); HGB 10.4 gm/dL (13.0-17.5); Lymphocytes # (A) 0.8 k/uL (1.0-4.8); Lymphocytes % (A) 18 %; MCHC 34.1 g/dL (31.0-37.0); MCV 102.6 fL (80.0-100.0); Macrocytosis Slight; Mean Platelet Volume 7.3; Monocytes # (A) 0.2 k/uL (0-1.0); Monocytes % (A) 6 %; Neutrophils # (A) 3.1 k/uL (1.3-7.7); Neutrophils % (A) 70 %; Platelet Count 214 k/uL (150-450); RBC 2.99 m/uL (4.30-5.90); RDW 13.5 % (11.5-15.5); WBC 4.4 k/uL (3.8-10.6)
[2020-09-17 06:45] LABS: African American GFR (CKD) 48 (>60 ml/min/1.73 sqM); Anion Gap 5 mmol/L; Blood Urea Nitrogen 39 mg/dL (9-20); Calcium 8.8 mg/dL (8.4-10.2); Carbon Dioxide 25 mmol/L (22-30); Chloride 105 mmol/L (98-107); Glucose 132 mg/dL (74-99); Non-African American GFR(CKD) 41 (>60 ml/min/1.73 sqM); Potassium 4.5 mmol/L (3.5-5.1); Sodium 135 mmol/L (137-145)
[2020-09-17 07:32] LABS: Glucose,Whole Blood 131 mg/dL (75-99)
[2020-09-17] MEDS: FUROSEMIDE 20 MG TAB PO SCH (08:46)
[2020-09-17] MEDS: FOLIC ACID 1 MG TAB PO SCH (08:46)
[2020-09-17] MEDS: HEPARIN SODIUM,PORCINE/PF 5,000 UNIT/0.5 ML SYRINGE SQ SCH (08:46)
[2020-09-17] MEDS: PRAVASTATIN SODIUM 20 MG TAB PO SCH (08:47)
[2020-09-17] MEDS: CYANOCOBALAMIN 500 MCG TAB PO SCH (08:47)
[2020-09-17] MEDS: PIOGLITAZONE 45 MG TAB PO SCH (08:47)
[2020-09-17] MEDS: CHOLECALCIFEROL 25 MCG (1000 IU) TABLET PO SCH (08:47)
[2020-09-17] MEDS: METOPROLOL TARTRATE 12.5 MG TAB PO SCH ×2 (08:53→22:36)
[2020-09-17 11:36] LABS: Glucose,Whole Blood 144 mg/dL (75-99)
[2020-09-17] MEDS: DOCUSATE 100 MG CAP PO PRN ×2 (12:03→22:36)
--- NOTE | 2020-09-17 12:12 | P.CRDCN ---
History of Present Illness History of present illness: HISTORY OF PRESENTING ILLNESS This is a pleasant 80-year-old male past medical history significant for type 2 diabetes, chronic kidney disease, hypertension, dyslipidemia, recent right humerus fracture due to a mechanical fall around 08/19/20. 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 We have been asked to see in consultation for syncope and new onset atrial fibrillation. Yesterday late afternoon, patient states that he walked the halls with assistance felt fine and had to have a bowel movement he walked back to his room with assistance and used the bedside commode, patient was bearing down for over 5 minutes. He states he was leaning forward for a long period of time. He had an episode of syncope, he does not recall this episode. Apparently the patient leaned back, his eyes rolled back and he was not responding for a brief episode, His was by his side and called for help. By the time of nursing staff help the patient, the patient is awake and alert and oriented 3. There is no documentation of hypotension or bradycardia. Patient states that he did have an episode of diaphoresis during this time. He denies chest pain, palpitations, shortness of breath, lightheadedness. He denies symptoms of orthopnea or PND. Patient denies history of atrial fibrillation/arrhythmia, Stroke, HTN, [place]. He denies ever having a stress test or echocardiogram. In addition overnight, around midnight patient went to atrial fibrillation on telemetry, EKG obtained which revealed atrial fibrillation, left axis deviation, heart rate 98. Patient converted back to sinus rhythm heart rate in the 90s this morning at 5:30 AM. Patient was admitted to the hospital on 09/12/2020 with musculoskeletal skeletal chest pain of his right shouldern and urinary retention. Patient states that he did fall at the end of July and had a right humerus fracture, he is following with orthopedics for this. He continues to be in an immobilizer and sling on his right arm. Patient is also was found to have acute renal failure, serum creatinine 2.3, and difficulty urinating. Had urinary retention with straight catheterization. Nephrology is following, believe that patient's acute kidney injury is currently possibly related to post renal. Ultrasound does not show any hydronephrosis. Patient also underwent thoracic or CT with IV contrast dye DIAGNOSTICS EKG reveals sinus rhythm, heart rate 85, left axis deviation, inversions in inferior leads consistent with possible prior infarct. No prior hospital EKG to compare EKG 00:15- atrial fibrillation, heart rate 98, left axis deviation, inferior leads changes consistent with possible prior infarct. EKG at 530 AM- patient in sinus rhythm, heart rate 90 Telemetry tracings indicate patient was in atrial fibrillation with heart rates in the 90-110. This a.m. patient converted to sinus mechanism around 5:30 AM. Laboratory reviewed, troponins negative 3 ,WBC 4.4, hemoglobin 10.4, platelets 214, sodium 135, potassium 4.5, BUN 39, serum creatinine 1.57 Current home cardiac medications include amlodipine 5mg daily REVIEW OF SYSTEMS At the time of my exam: CONSTITUTIONAL: Denies fever or chills. CARDIOVASCULAR: syncope. Denies chest pain, shortness of breath, orthopnea, PND or palpitations. RESPIRATORY: Denies cough. GASTROINTESTINAL: Denies abdominal pain, diarrhea, constipation, nausea or vomiting. MUSCULOSKELETAL: Denies myalgias. NEUROLOGIC: Denies numbness, tingling, headacbe or weakness. ENDOCRINE: Denies fatigue, weight change, polydipsia or polyurina. GENITOURINARY: Denies burning, hematuria or urgency with micturation. HEMATOLOGIC: Denies history of anemia or bleeding. PHYSICAL EXAMINATION CONSTITUTIONAL: No apparent distress. HEENT: Head is normocephalic. Pupils are equal, round. Sclerae anicteric. Mucous membranes of the mouth are moist. No JVD. No carotid bruit. CHEST EXAMINATION: Lungs are clear to auscultation. No chest wall tenderness is noted on palpation or with deep breathing. HEART EXAMINATION: Regular rate and rhythm. S1, S2 heard. No murmurs, gallops or rub. ABDOMEN: Soft, nontender. Positive bowel sounds. EXTREMITIES: 2+ peripheral pulses, no lower extremity edema and no calf tenderness. SKIN: intact NEUROLOGIC EXAMINATION: Patient is awake, alert and oriented x3. ASSESSMENT Syncope, most likely vasovagal episode due to prolonged time bent over, increased straining. Paroxysmal Atrial fibrillation -[id number] score 4 History of Hypertension Type 2 Diabetes Dyslipidemia Acute Kidney injury PLAN -Obtain 2D echocardiogram -Orthostatic vitals signs completed and were negative -Patient not on ACEI/ARB due to renal function, amlodipine held due to patient being hypotensive -We will start metoprolol tartrate 12.5mg BID -Continue statin -Anticoagulation: Eliquis 2.5mg BID. Risk of thromboembolism and bleeding were discussed with the patient. He states he has recently had falls at home 3 this year, he plans to be discharged to rehab. Case management consulted for Eliquis prescription. This is not covered by the patient's insurance, however, patient is going to rehab in the medication will be covered at this time. -On discharge, follow up with Dr. Brennan -Further recommendations based on clinical course Nurse Practitioner note has been reviewed, I agree with a documented findings and plan of care. Patient was seen and examined. Past Medical History Past Medical History: Diabetes Mellitus, Hypertension, Renal Disease Additional Past Medical History / Comment(s): right humerus fracture History of Any Multi-Drug Resistant Organisms: None Reported Past Surgical History: No Surgical Hx Reported Past Anesthesia/Blood Transfusion Reactions: No Reported Reaction Past Psychological History: No Psychological Hx Reported Smoking Status: Never smoker Past Alcohol Use History: Occasional Medications and Allergies Home Medications Medication Instructions Recorded Confirmed Type Allopurinol [Zyloprim] 100 mg PO HS 09/12/20 09/12/20 History Cholecalciferol [Vitamin D3 (25 25 mcg PO DAILY 09/12/20 09/12/20 History Mcg = 1000 Iu)] Cinnamon Bark [Cinnamon] 500 mg PO DAILY 09/12/20 09/12/20 History Cyanocobalamin (Vitamin B-12) 1,000 mcg PO DAILY 09/12/20 09/12/20 History [Vitamin B-12] Folic Acid 0.4 mg PO DAILY 09/12/20 09/12/20 History Garlic 1 tab PO DAILY 09/12/20 09/12/20 History Pioglitazone [Actos] 45 mg PO DAILY 09/12/20 09/12/20 History Pravastatin Sodium [Pravachol] 20 mg PO HS 09/12/20 09/12/20 History Saw [place] 500 mg PO BID 09/12/20 09/12/20 History Selenium 200 mcg PO DAILY 09/12/20 09/12/20 History amLODIPine [Norvasc] 5 mg PO DAILY 09/12/20 09/12/20 History Furosemide [Lasix] 20 mg PO DAILY 09/13/20 09/13/20 History Apixaban [Eliquis] 2.5 mg PO BID 30 Days #60 tab 09/17/20 Rx Allergies Allergy/AdvReac Type Severity Reaction Status Date / Time No Known Allergies Allergy Verified 09/12/20 22:46 Physical Exam Vitals: Vital Signs Temp Pulse Resp BP Pulse Ox 09/17/20 02:00 99.4 F 119 H 18 97/61 99 09/17/20 01:49 106 H 09/17/20 00:44 97.9 F 106 H 20 105/59 98 09/16/20 19:40 98.5 F 96 20 105/69 100 09/16/20 19:36 14 09/16/20 19:20 98.2 F 97 20 100/62 99 09/16/20 14:00 96 14 09/16/20 13:45 98.7 F 96 14 124/70 100 09/16/20 08:00 94 16 Intake and Output 09/16/20 09/17/20 09/17/20 22:59 06:59 14:59 Output Total 225 250 Balance -225 -250 Output: Urine 225 250 Other: Voiding Method Urinal # Voids 1 4 # Bowel Movements 1 Results 09/17/20 06:04 09/17/20 06:04 Cardiac Enzymes 09/16/20 09/17/20 09/17/20 Range/Units 21:55 02:18 06:04 Troponin I <0.012 <0.012 <0.012 (0.000-0.034) ng/mL CBC 09/16/20 09/17/20 Range/Units 05:07 06:04 WBC 6.04 4.4 (4.50-10.00) X 10*3/uL RBC 3.03 L 2.99 L (4.40-5.60) X 10*6/uL Hgb 10.3 L 10.4 L (13.0-17.0) g/dL Hct 32.3 L 30.6 L (39.6-50.0) % Plt Count 211 214 (140-440) X 10*3/uL Comprehensive Metabolic Panel 09/16/20 09/17/20 Range/Units 05:07 06:04 Sodium 138 135 L (135-145) mmol/L Potassium 4.6 4.5 (3.5-5.5) mmol/L Chloride 108 105 (96-109) mmol/L Carbon Dioxide 23.5 25 (21.6-31.8) mmol/L BUN 50.0 H 39 H (9.0-27.0) mg/dL Creatinine 1.8 H 1.57 H (0.6-1.5) mg/dL Glucose 138 H 132 H (70-110) mg/dL Calcium 8.6 L 8.8 (8.7-10.3) mg/dL Current Medications Generic Name Dose Route Start Last Admin Trade Name Freq PRN Reason Stop Dose Admin Acetaminophen 650 mg 09/12/20 21:57 09/13/20 08:23 Acetaminophen Tab 325 Mg Tab PO 650 mg Q6HR PRN Administration Mild Pain or Fever > 100.5 Acetaminophen/Codeine Phosphate 1 each 09/13/20 00:16 Acetaminophen-Codeine 300-30mg Tab PO Q8HR PRN Pain Allopurinol 100 mg 09/13/20 21:00 09/16/20 20:24 Allopurinol 100 Mg Tab PO 100 mg HS PATTI Administration Cholecalciferol 25 mcg 09/13/20 09:00 09/16/20 07:54 Cholecalciferol 25 Mcg (1000 Iu) Tablet PO 25 mcg DAILY PATTI Administration Cyanocobalamin 1,000 mcg 09/13/20 09:00 09/16/20 07:54 Cyanocobalamin 500 Mcg Tab PO 1,000 mcg DAILY PATTI Administration Docusate Sodium 100 mg 09/13/20 09:00 Docusate 100 Mg Cap PO BID PRN Constipation Folic Acid 0.5 mg 09/13/20 09:00 09/16/20 07:54 Folic Acid 1 Mg Tab PO 0.5 mg DAILY PATTI Administration Furosemide 20 mg 09/17/20 09:00 Furosemide 20 Mg Tab PO DAILY PATTI Heparin Sodium (Porcine) 5,000 unit 09/13/20 21:00 09/16/20 20:24 Heparin Sodium,Porcine/Pf 5,000 Unit/0.5 Ml Syringe SQ 5,000 unit Q12HR PATTI Administration Sodium Chloride 1,000 mls @ 100 mls/hr 09/17/20 01:30 09/17/20 02:11 Saline 0.9% IV 09/17/20 13:30 100 mls/hr .Q10H PATTI Administration Magnesium Hydroxide 2,400 mg 09/14/20 17:55 Magnesium Hydroxide 2,400 Mg/10 Ml Cup PO DAILY PRN Constipation Melatonin 6 mg 09/13/20 15:56 09/16/20 20:23 Melatonin 3 Mg Tablet PO 6 mg HS PRN Administration Insomnia Naloxone HCl 0.2 mg 09/12/20 21:57 Naloxone 0.4 Mg/Ml 1 Ml Vial IV Q2M PRN Opioid Reversal Ondansetron HCl 4 mg 09/12/20 21:57 09/16/20 22:04 Ondansetron 4 Mg/2 Ml Vial IVP 4 mg Q8HR PRN Administration Nausea And Vomiting Pioglitazone HCl 45 mg 09/13/20 09:00 09/16/20 07:55 Pioglitazone 45 Mg Tab PO 45 mg DAILY PATTI Administration Pravastatin Sodium 20 mg 09/13/20 09:00 09/16/20 07:55 Pravastatin Sodium 20 Mg Tab PO 20 mg DAILY PATTI Administration Tramadol HCl 50 mg 09/13/20 10:49 Tramadol 50 Mg Tab PO Q6H PRN Pain Intake and Output 09/16/20 09/17/20 09/17/20 22:59 06:59 14:59 Output Total 225 250 Balance -225 -250 Output: Urine 225 250 Other: Voiding Method Urinal # Voids 1 4 # Bowel Movements 1 09/17/20 06:04 09/17/20 06:04
[2020-09-17 16:41] LABS: Glucose,Whole Blood 148 mg/dL (75-99)
--- NOTE | 2020-09-17 18:58 | PN ---
PROGRESS NOTE Patient is seen for followup for acute kidney injury. His renal function has been improving. Serum creatinine down to 1.57 from 2.3 mg/dL. Currently patient is sitting up in bed. He is maintained on low-dose oral Lasix. He states that he developed syncope yesterday after having a hard bowel movement. He denies any chest pains. PHYSICAL EXAMINATION: On examination today, blood pressure 125/76, heart rate 95 per minute. He is afebrile. Examination of the heart S1, S2. Examination of the lungs, bilateral breath sounds are heard. Abdomen is soft, nontender. Examination lower extremities shows no significant edema. ANGULAR DEVELOPER exam grossly intact. LAB: Show sodium 135, potassium 4.5, BUN 39, creatinine 1.57, hemoglobin 10.4 g/dL. ASSESSMENT: 1. Acute kidney injury, prerenal, currently improving, maintained on IV fluids. He did have urine retention and has required straight catheterization. No evidence of hydronephrosis on ultrasound. 2. Status post IV dye on 09/12/2020, renal function fairly stable with no worsening noted. 3. Type 2 diabetes. 4. Right shoulder pain from a fall and fracture. PLAN: Decrease IV fluids, encourage increased oral intake. MMODL / IJN: [id number] /
[2020-09-17 20:21] LABS: Glucose,Whole Blood 166 mg/dL (75-99)
[2020-09-17] MEDS: APIXABAN 2.5 MG TABLET PO SCH (22:36)
[2020-09-17] MEDS: allopurinoL 100 MG TAB PO SCH (22:36)
[2020-09-18 07:25] LABS: Glucose,Whole Blood 125 mg/dL (75-99)
[2020-09-18] MEDS: CYANOCOBALAMIN 500 MCG TAB PO SCH (07:50)
[2020-09-18] MEDS: METOPROLOL TARTRATE 12.5 MG TAB PO SCH (07:50)
[2020-09-18] MEDS: DOCUSATE 100 MG CAP PO PRN (07:50)
[2020-09-18] MEDS: APIXABAN 2.5 MG TABLET PO SCH (07:51)
[2020-09-18] MEDS: PIOGLITAZONE 45 MG TAB PO SCH (07:51)
[2020-09-18] MEDS: FOLIC ACID 1 MG TAB PO SCH (07:51)
[2020-09-18] MEDS: PRAVASTATIN SODIUM 20 MG TAB PO SCH (07:51)
[2020-09-18] MEDS: CHOLECALCIFEROL 25 MCG (1000 IU) TABLET PO SCH (07:52)
[2020-09-18] MEDS: FUROSEMIDE 20 MG TAB PO SCH (07:52)
[2020-09-18 09:21] LABS: Basophils # (A) 0.02 X 10*3/uL (0.00-0.10); Basophils % (A) 0.4 %; Eosinophils # (A) 0.25 X 10*3/uL (0.04-0.35); Eosinophils % (A) 5.1 %; HCT 33.1 % (39.6-50.0); HGB 10.5 g/dL (13.0-17.0); Lymphocytes # (A) 1.03 X 10*3/uL (0.90-5.00); Lymphocytes % (A) 21.2 %; MCHC 31.7 g/dL (32.0-37.0); MCV 107.1 fL (80.0-97.0); Monocytes # (A) 0.43 X 10*3/uL (0.20-1.00); Monocytes % (A) 8.8 %; Neutrophils # (A) 3.08 X 10*3/uL (1.80-7.70); Neutrophils % (A) 63.5 %; Platelet Count 235 X 10*3/uL (140-440); RBC 3.09 X 10*6/uL (4.40-5.60); RDW 14.1 % (11.5-14.5); WBC 4.86 X 10*3/uL (4.50-10.00)
--- NOTE | 2020-09-18 10:12 | ECHOF ---
Referral Reason:LV function MEASUREMENTS -------- HEIGHT: 170.2 cm WEIGHT: 79.8 kg BP: 97/61 IVSd: 1.4 cm (0.6 - 1.1) LVIDd: 3.1 cm (3.9 - 5.3) LVPWd: 1.4 cm (0.6 - 1.1) IVSs: 1.4 cm LVIDs: 2.3 cm LVPWs: 1.1 cm LAESV Index (A-L): 47.10 ml/m Ao Diam: 4.0 cm (2.0 - 3.7) AV Cusp: 1.1 cm (1.5 - 2.6) LA Diam: 4.6 cm (2.7 - 3.8) MV E Adis: 1.22 m/s MV DecT: 257 ms MV A Adis: 1.42 m/s MV E/A Ratio: 0.86 AV maxP.82 mmHg AV meanP.62 mmHg RAP: 5.00 mmHg RVSP: 38.07 mmHg FINDINGS -------- Sinus rhythm. This was a technically difficult study with suboptimal views. The left ventricular size is normal. There is moderate concentric left ventricular hypertrophy. O verall left ventricular systolic function is normal with, an EF between 55 - 60 %. The RV was not well visualized. LA is moderately dilated 34-39 ml/m2 The right atrium was not well visualized. 5.0mg of Lumason was utilized for enhancement of images Interatrial and interventricular septum intact. There is no evidence of aortic regurgitation. There is mild aortic stenosis present. Peak/mean gr adient across the Aortic Valve is 28.82mmHg / 14.62mmHg. Moderate mitral annular calcification present. [id number] mitral regurgitation is present. Mild tricuspid regurgitation present. There is no evidence of pulmonary hypertension. The right v entricular systolic pressure, as measured by Doppler, is 38.07mmHg. There is no pulmonic regurgitation present. The aortic root size is normal. IVC Not well visulized. There is no pericardial effusion. CONCLUSIONS -------- 1. The left ventricular size is normal. 2. There is moderate concentric left ventricular hypertrophy. 3. Overall left ventricular systolic function is normal with, an EF between 55 - 60 %. 4. LA is moderately dilated 34-39 ml/m2 5. There is mild aortic stenosis present. 6. Peak/mean gradient across the Aortic Valve is 28.82mmHg / 14.62mmHg. 7. Moderate mitral annular calcification present. 8. [id number] mitral regurgitation is present. 9. Mild tricuspid regurgitation present. NETWORK SYSTEMS ANALYST: Ema Chandler RDCS
--- NOTE | 2020-09-18 10:46 | PN ---
PROGRESS NOTE Patient is seen for followup for acute kidney injury. His renal function has improved. No labs were who available from today. Serum creatinine 1.57 yesterday from 2.3 at peak. PHYSICAL EXAMINATION: Patient is comfortable, awake, not in any acute distress. Blood pressure 113/63, heart rate 99 per minute. He is afebrile. Examination of the heart S1, S2. Examination of the lungs, bilateral breath sounds are heard. Abdomen is soft, nontender. Examination of lower extremities shows edema trace bilaterally. ELEVATOR SERVICE TECHNICIAN exam grossly intact. LABS: Not available from today. Serum creatinine 1.57 on 09/17/2020. ASSESSMENT: 1. Acute kidney injury prerenal currently maintained on IV fluids. IV fluids were decreased yesterday. 2. Type 2 diabetes. 3. Right shoulder pain and fall and fracture, currently in a sling. 4. Status post IV contrast 09/12/2020 with no worsening of renal function. PLAN: Discontinue IV fluids. Okay for discharge from nephrology standpoint. MMODL / IJN: [id number] /
[2020-09-18 11:56] LABS: Glucose,Whole Blood 136 mg/dL (75-99)
[2020-09-18 13:31] VITALS: BMI 43.7
[2020-09-18 14:04] VITALS: BP 105/61; PULSE 90; RESP 15; TEMP 97.8
[2020-09-18 14:19] LABS: African American GFR (CKD) 50.2 (60.0-200.0); Calcium 8.5 mg/dL (8.7-10.3); Non-African American GFR(CKD) 43.3 (60.0-200.0); Potassium 4.5 mmol/L (3.5-5.5)
--- NOTE | 2020-09-18 14:20 | P.PN ---
Subjective This is a pleasant 80-year-old male past medical history significant for type 2 diabetes, chronic kidney disease, hypertension, dyslipidemia, recent right humerus fracture due to a mechanical fall around 08/19/20. 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 We have been asked to see in consultation for syncope and new onset atrial fibrillation. Yesterday late afternoon, patient states that he walked the halls with assistance felt fine and had to have a bowel movement he walked back to his room with assistance and used the bedside commode, patient was bearing down for over 5 minutes. He states he was leaning forward for a long period of time. He had an episode of syncope, he does not recall this episode. Apparently the patient leaned back, his eyes rolled back and he was not responding for a brief episode, His was by his side and called for help. By the time of nursing staff help the patient, the patient is awake and alert and oriented 3. There is no documentation of hypotension or bradycardia. Patient states that he did have an episode of diaphoresis during this time. He denies chest pain, palpitations, shortness of breath, lightheadedness. He denies symptoms of orthopnea or PND. Patient denies history of atrial fibrillati on/arrhythmia, Stroke, HTN, [place]. He denies ever having a stress test or echocardiogram. In addition overnight, around midnight patient went to atrial fibrillation on telemetry, EKG obtained which revealed atrial fibrillation, left axis deviation, heart rate 98. Patient converted back to sinus rhythm heart rate in the 90s this morning at 5:30 AM. Patient was admitted to the hospital on 09/12/2020 with musculoskeletal skeletal chest pain of his right shouldern and urinary retention. Patient states that he did fall at the end of July and had a right humerus fracture, he is following with orthopedics for this. He continues to be in an immobilizer and sling on his right arm. Patient is also was found to have acute renal failure, serum creatinine 2.3, and difficulty urinating. Had urinary retention with straight catheterization. Nephrology is following, believe that patient's acute kidney injury is currently possibly related to post renal. Ultrasound does not show any hydronephrosis. Patient also underwent thoracic or CT with IV contrast dye DIAGNOSTICS EKG reveals sinus rhythm, heart rate 85, left axis deviation, inversions in inferior leads consistent with possible prior infarct. No prior hospital EKG to compare EKG 00:15- atrial fibrillation, heart rate 98, left axis deviation, inferior leads changes consistent with possible prior infarct. EKG at 530 AM- patient in sinus rhythm, heart rate 90 Telemetry tracings indicate patient was in atrial fibrillation with heart rates in the 90-110. This a.m. patient converted to sinus mechanism around 5:30 AM on 09/17 Laboratory reviewed, troponins negative 3 ,WBC 4.4, hemoglobin 10.4, platelets 214, sodium 135, potassium 4.5, BUN 39, serum creatinine 1.57 09/18/2020: Patient seen and examined at bedside, no acute distress. He denies any further episodes of syncope. He denies chest pain, palpitations, shortness of breath and lightheadedness, dizziness. He is in the bedside chair, states he feels much better. Telemetry reviewed patient continues to stay in sinus mechanism, no further episodes of atrial fibrillation. He converted back to sinus mechanism around 5:30 in the morning on 09/17. Echocardiogram revealed an EF of 55-60%, LA is moderately dilated, mild aortic stenosis is present with a peak/mean gradient 28 mmHg/14 mmHg, mild to moderate mitral regurgitation, mild tricuspid regurgitation. Patient is currently maintained on Eliquis 2.5 mg daily, Lasix 20 mg daily, pravastatin 20 mg daily, metoprolol tartrate 12.5 mg twice a day PHYSICAL EXAMINATION CONSTITUTIONAL: No apparent distress. HEENT: Neck Supple CHEST EXAMINATION: Lungs are clear to auscultation. No chest wall tenderness is noted on palpation or with deep breathing. HEART EXAMINATION: Regular rate and rhythm. S1, S2 heard. No murmurs, gallops or rub. ABDOMEN: Soft, nontender. Positive bowel sounds. EXTREMITIES: 2+ peripheral pulses, no lower extremity edema and no calf tenderness. NEUROLOGIC EXAMINATION: Patient is awake, alert and oriented x3. ASSESSMENT Syncope, most likely vasovagal episode due to prolonged time bent over, increased straining. Paroxysmal Atrial fibrillation -[id number] score 4 History of Hypertension Type 2 Diabetes Dyslipidemia Acute Kidney injury PLAN -Recommend continuing metoprolol tartrate 12.5mg BID -Patient not on ACEI/ARB due to renal function, amlodipine held due to patient being hypotensive -Continue statin -Anticoagulation: Eliquis 2.5mg BID. Risk of thromboembolism and bleeding were discussed with the patient. He states he has recently had falls at home 3 this year, he plans to be discharged to rehab. Case management consulted for Eliquis prescription. This is not covered by the patient's insurance, however, patient is going to rehab in the medication will be covered at this time. -We will continue Eliquis, and discussed with patient in the office if he has to be transitioned to Coumadin in the next month or so pending his clinical course at Rehab. This was discussed with the patient. -From cardiology perspective, patient is stable. We will sign off at this time -On discharge, follow up with Dr. Brennan Nurse Practitioner note has been reviewed, I agree with a documented findings and plan of care. Patient was seen and examined. Objective - Vital Signs Vital signs: Vital Signs Temp 97.8 F 09/18/20 14:03 Pulse 90 09/18/20 14:03 Resp 15 09/18/20 14:03 BP 105/61 09/18/20 14:03 Pulse Ox 95 09/18/20 14:03 Intake & Output 09/17/20 09/18/20 09/18/20 18:59 06:59 18:59 Intake Total 298 Output Total 1640 300 610 Balance -1342 -300 -610 Weight 126.7 kg 126.7 kg Intake: Oral 298 Output: Urine 1640 300 610 Other: Voiding Method Urinal Urinal # Voids 1 3 - Labs CBC & Chem 7: 09/18/20 06:09 09/17/20 06:04 Labs: Abnormal Lab Results - Last 24 Hours (Table) 09/17/20 09/17/20 09/18/20 Range/Units 16:39 20:20 06:09 RBC 3.09 L (4.40-5.60) X 10*6/uL Hgb 10.5 L (13.0-17.0) g/dL Hct 33.1 L (39.6-50.0) % MCV 107.1 H (80.0-97.0) fL MCH 34.0 H (27.0-32.0) pg MCHC 31.7 L (32.0-37.0) g/dL Immature Gran # 0.05 H (0.00-0.04) X 10*3/uL POC Glucose (mg/dL) 148 H 166 H (75-99) mg/dL 09/18/20 09/18/20 Range/Units 07:22 11:54 RBC (4.40-5.60) X 10*6/uL Hgb (13.0-17.0) g/dL Hct (39.6-50.0) % MCV (80.0-97.0) fL MCH (27.0-32.0) pg MCHC (32.0-37.0) g/dL Immature Gran # (0.00-0.04) X 10*3/uL POC Glucose (mg/dL) 125 H 136 H (75-99) mg/dL
--- NOTE | 2020-09-18 14:55 | P.PN ---
Subjective Progress Note Date: 09/17/20 Principal diagnosis: Right shoulder and right chest pain and musculoskeletal noncardiac Acute renal failure probably multifactorial Hyperkalemia secondary to obstructive uropathy Hyponatremia hypovolemic Patient is a 80-year-old male came in with muscular skeletal chest pain in the right shoulder area radiating across the chest and in the midsternal area and also going to the back which he changes with the movement of the hand. Patient has sharp nonradiating pain. She and pain was moderate severe and today it's much better and about 1/10 today. Patient is basically admitted for the acute renal failure with a serum creatinine of 2.3 patient does have problems with urination does have BPH patient had urinary retention patient had a straight c atheterization we'll recheck again in and. Patient is also hyponatremic hypokalemic all of which were can be secondary to acute renal failure and obstructive uropathy. Nephrology was consulted and also ordered a renal ultrasound. Urine osmolality urine random sodium urine random creatinine were o rdered as well along with urine eosinophils. UA didn't show any proteinuria patient baseline creatinine is around 1.8. 09/15/2020 Patient is seen and evaluated for follow-up; complains of episodes of nausea and vomiting. Denies any further chest pain or shortness of breath Vital signs are stable with a temperature of 98.6 pulse 101 respiration 18 and blood pressure 116/75 Lab review shows a BUN of 67 with creatinine of 1.9; sodium 133 and potassium of 4.9 Nephrology on board and recommending to continue to monitor renal function off of IV fluids secondary to mild volume overload; renal ultrasound is unremarkable for any hydronephrosis 09/16/2020 Patient is seen and evaluated sitting up in bed with at bedside; reports a 3 field night without any complaint of nausea vomiting Vital signs remained stable and patient remains afebrile blood pressure 115/68, pulse of 94 with respirations 16; SpO2 of 95% Lab review shows sodium of 138, potassium 4.6, BUN/creatinine of 50/1.8 Renal function improving without any fluids; diuretics have been on hold so far; nephrology on board and recommending to resume home dose of loop diuretics and encourage increase oral fluid intake; monitor renal function 09/17/2020 Patient is currently resting in the bed comfortably. Patient had a syncopal episode while he was on the commode and fell to the side. Denied any complaints of nausea vomiting or dizziness prior. Patient Was Seen by Cardiology and Recommends 2-D Echocardiogram. EKG Showed Atrial Fibrillation and Inferiorly Changes Consistent with Possible Prior Infarct. Currently in Sinus Rhythm. Patient Was Started on Metoprolol and An ticoagulation with Eliquis. Laboratory Data Showed WBC 4.4, Hemoglobin 10.4 and Platelets 214, Sodium 135 Potassium 4.5 BUN 39 and Creatinine 1.57. Nephrology and Cardiology Is on Board. Pain Is Controlled. Current Medications Reviewed. Objective - Vital Signs Vital signs: Vital Signs Temp 98.6 F 09/17/20 19:56 Pulse 92 09/17/20 19:56 Resp 18 09/17/20 20:00 BP 112/66 09/17/20 19:56 Pulse Ox 100 09/17/20 19:56 Intake & Output 09/17/20 09/17/20 09/18/20 06:59 18:59 06:59 Intake Total 298 Output Total 475 1640 Balance -475 1342 Weight 126.7 kg Intake: Oral 298 Output: Urine 475 1640 Other: Voiding Method Urinal Urinal # Voids 4 1 # Bowel Movements 1 - Exam GENERAL: The patient is alert and oriented x3, not in any acute distress. Well developed, well nourished. HEENT: Pupils are round and equally reacting to light. EOMI. No scleral icterus. No conjunctival pallor. Normocephalic, atraumatic. No thyromegaly. CARDIOVASCULAR: S1 and S2 present. No murmurs, rubs, or gallops. PULMONARY: Chest is clear to auscultation, no wheezing or crackles. ABDOMEN: Soft, nontender, nondistended, normoactive bowel sounds. No palpable organomegaly. MUSCULOSKELETAL: has a right arm sling and patient right shoulder is postsurgical pack EXTREMITIES: No cyanosis, clubbing, or pedal edema. NEUROLOGICAL: Gross neurological examination did not reveal any focal deficits. SKIN: No rashes. - Labs CBC & Chem 7: 09/18/20 06:09 09/18/20 06:09 Labs: Abnormal Lab Results - Last 24 Hours (Table) 09/17/20 09/17/20 09/17/20 Range/Units 06:04 06:04 07:30 RBC 2.99 L (4.30-5.90) m/uL Hgb 10.4 L (13.0-17.5) gm/dL Hct 30.6 L (39.0-53.0) % MCV 102.6 H (80.0-100.0) fL Lymphocytes # 0.8 L (1.0-4.8) k/uL Sodium 135 L (137-145) mmol/L BUN 39 H (9-20) mg/dL Creatinine 1.57 H (0.66-1.25) mg/dL Glucose 132 H (74-99) mg/dL POC Glucose (mg/dL) 131 H (75-99) mg/dL 09/17/20 09/17/20 09/17/20 Range/Units 11:33 16:39 20:20 RBC (4.30-5.90) m/uL Hgb (13.0-17.5) gm/dL Hct (39.0-53.0) % MCV (80.0-100.0) fL Lymphocytes # (1.0-4.8) k/uL Sodium (137-145) mmol/L BUN (9-20) mg/dL Creatinine (0.66-1.25) mg/dL Glucose (74-99) mg/dL POC Glucose (mg/dL) 144 H 148 H 166 H (75-99) mg/dL Assessment and Plan Assessment: -Syncope likely vasovagal while he was on the commode and increased straining. -Paroxysmal atrial fibrillation. Started on anticoagulation with Eliquis. -Right shoulder and right chest pain likely musculoskeletal troponin is negative EKG showed some nonspecific ST-T wave changes in the lateral. -Recent history of right arm/shoulder fracture currently on sling. -Acute renal failure probably multifactorial including prerenal azotemia as well as the obstructive uropathy . patient is also hypotensive ultrasound of the kidneys did not show any significant abnormality CT abdomen earlier which showed hydronephrosis which improved after probable placement of Nguyen catheter. Renal function is improving. Reduce IV fluid rate. -Macrocytic anemia. B12 levelsWithin normal limits. -Hyponatremia hypovolemic as well as secondary to obstructive uropathy. Improved. -Hyperkalemia secondary to obstructive uropathy. Improved. -Obstructive sleep apnea and obesity patient uses CPAP machine at home -Type 2 diabetes mellitus -Hypertension presently hypotensive hold hold off on antidepressant medications -DVT to prophylaxison full and atrial fibrillation currently. Time with Patient: Greater than 30
--- NOTE | 2020-09-18 15:02 | P.DS ---
Providers Date of admission: 09/15/20 10:40 Expected date of discharge: 09/18/20 Attending physician: Gabi Carreon Consults: 09/13/20 10:12 Consult Physician Routine Consulting Provider: Joseph Salinas Consult Reason/Comments: CRISTIAN on CKD Do you want consulting provider notified?: Yes 09/16/20 21:43 Consult Physician Routine Consulting Provider: Kraig David Consult Reason/Comments: syncope, hypotension Do you want consulting provider notified?: Yes, Notify in am Primary care physician: Rodrigo Louis Hospital Course: Discharge diagnosis -Syncope likely vasovagal while he was on the commode and increased straining. -Paroxysmal atrial fibrillation. Started on anticoagulation with Eliquis. -Right shoulder and right chest pain likely musculoskeletal troponin is negative EKG showed some nonspecific ST-T wave changes in the lateral with prior [place].. -Recent history of right arm/shoulder fracture currently on sling. -Acute renal failure probably multifactorial including prerenal azotemia as well as the obstructive uropathy . patient was also hypotensive ultrasound of the kidneys did not show any significant abnormality CT abdomen earlier which showed hydronephrosis which improved after probable placement of Nguyen catheter. Renal function is improving. IV fluids have been discontinued. Creatinine level improved to 1.5 today.. -Macrocytic anemia. B12 levelsWithin normal limits. -Hyponatremia hypovolemic as well as secondary to obstructive uropathy. Improved. -Hyperkalemia secondary to obstructive uropathy. Improved. -Obstructive sleep apnea and obesity patient uses CPAP machine at home -Type 2 diabetes mellitus -DVT to prophylaxison full and atrial fibrillation currently. Hospital course Patient is a 80-year-old male came in with muscular skeletal chest pain in the right shoulder area radiating across the chest and in the midsternal area and also going to the back which he changes with the movement of the hand. Patient has sharp nonradiating pain. She and pain was moderate severe and today it's much better and about 1/10 today. Patient is basically admitted for the acute renal failure with a serum creatinine of 2.3 patient does have problems with urination does have BPH patient had urinary retention patient had a straight catheterization we'll recheck again in and. Patient is also hyponatremic hypokalemic all of which were can be secondary to acute renal failure and obstructive uropathy. Nephrology was consulted and also ordered a renal ultrasound. Urine osmolality urine random sodium urine random creatinine were ordered as well along with urine eosinophils. UA didn't show any proteinuria patient baseline creatinine is around 1.8. 09/15/2020 Patient is seen and evaluated for follow-up; complains of episodes of nausea and vomiting. Denies any further chest pain or shortness of breath Vital signs are stable with a temperature of 98.6 pulse 101 respiration 18 and blood pressure 116/75 Lab review shows a BUN of 67 with creatinine of 1.9; sodium 133 and potassium of 4.9 Nephrology on board and recommending to continue to monitor renal function off of IV fluids secondary to mild volume overload; renal ultrasound is unremarkable for any hydronephrosis 09/16/2020 Patient is seen and evaluated sitting up in bed with at bedside; reports a 3 field night without any complaint of nausea vomiting Vital signs remained stable and patient remains afebrile blood pressure 115/68, pulse of 94 with respirations 16; SpO2 of 95% Lab review shows sodium of 138, potassium 4.6, BUN/creatinine of 50/1.8 Renal function improving without any fluids; diuretics have been on hold so far; nephrology on board and recommending to resume home dose of loop diuretics and encourage increase oral fluid intake; monitor renal function 09/17/2020 Patient is currently resting in the bed comfortably. Patient had a syncopal episode while he was on the commode and fell to the side. Denied any complaints of nausea vomiting or dizziness prior. Patient Was Seen by Cardiology and Recommends 2-D Echocardiogram. EKG Showed Atrial Fibrillation and Inferiorly Changes Consistent with Possible Prior Infarct. Currently in Sinus Rhythm. Patient Was Started on Metoprolol and Anticoagulation with Eliquis. Laboratory Data Showed WBC 4.4, Hemoglobin 10.4 and Platelets 214, Sodium 135 Potassium 4.5 BUN 39 and Creatinine 1.57. Nephrology and Cardiology Is on Board. Pain Is Controlled. 09/18/2020 Patient is currently resting in the bed comfortably. Pain is controlled. No complaints of chest pain or shortness of breath. No headache or dizziness or lightheadedness. Currently maintaining sinus rhythm. 2-D echo cardiac showed his ejection fraction 55-60%, LAD is mildly dilated, mild aortic stenosis is present with a peak mean gradient 28 mm Hg/40 mmHg. Mild to moderate MR and mild TR Patient is being continued on metoprolol. SARBJIT inhibitor is on hold due to h ypotension and CRISTIAN. Physical examination GENERAL: The patient is alert and oriented x3, not in any acute distress. Well developed, well nourished. HEENT: Pupils are round and equally reacting to light. EOMI. No scleral icterus. No conjunctival pallor. Normocephalic, atraumatic. No thyromegaly. CARDIOVASCULAR: S1 and S2 present. No murmurs, rubs, or gallops. PULMONARY: Chest is clear to auscultation, no wheezing or crackles. ABDOMEN: Soft, nontender, nondistended, normoactive bowel sounds. No palpable organomegaly. MUSCULOSKELETAL: has a right arm sling and patient right shoulder is postsurgical pack EXTREMITIES: No cyanosis, clubbing, or pedal edema. NEUROLOGICAL: Gross neurological examination did not reveal any focal deficits. SKIN: No rashes. Vital Signs 09/18/20 09/18/20 08:36 14:03 Temperature 97.8 F Pulse Rate [ 90 Left Standing] Respiratory 15 Rate Blood Pressure 105/61 [Left Arm Standing] O2 Sat by Pulse 99 95 Oximetry Total time taken greater than 35 minutes including 18 minutes for counseling and coordination of care. Patient Condition at Discharge: Fair Plan - Discharge Summary Discharge Rx Participant: No New Discharge Prescriptions: New Apixaban [Eliquis] 2.5 mg PO BID 30 Days #60 tab Docusate [Colace] 100 mg PO BID PRN #0 cap PRN Reason: Constipation Metoprolol Tartrate [Lopressor] 12.5 mg PO BID #60 tab Continue Garlic 1 tab PO DAILY Cholecalciferol [Vitamin D3 (25 Mcg = 1000 Iu)] 25 mcg PO DAILY Pioglitazone [Actos] 45 mg PO DAILY Folic Acid 0.4 mg PO DAILY Allopurinol [Zyloprim] 100 mg PO HS Cyanocobalamin (Vitamin B-12) [Vitamin B-12] 1,000 mcg PO DAILY Cinnamon Bark [Cinnamon] 500 mg PO DAILY Selenium 200 mcg PO DAILY Pravastatin Sodium [Pravachol] 20 mg PO HS Saw [place] 500 mg PO BID Furosemide [Lasix] 20 mg PO DAILY Discontinued amLODIPine [Norvasc] 5 mg PO DAILY Discharge Medication List Allopurinol [Zyloprim] 100 mg PO HS 09/12/20 [History] Cholecalciferol [Vitamin D3 (25 Mcg = 1000 Iu)] 25 mcg PO DAILY 09/12/20 [History] Cinnamon Bark [Cinnamon] 500 mg PO DAILY 09/12/20 [History] Cyanocobalamin (Vitamin B-12) [Vitamin B-12] 1,000 mcg PO DAILY 09/12/20 [History] Folic Acid 0.4 mg PO DAILY 09/12/20 [History] Garlic 1 tab PO DAILY 09/12/20 [History] Pioglitazone [Actos] 45 mg PO DAILY 09/12/20 [History] Pravastatin Sodium [Pravachol] 20 mg PO HS 09/12/20 [History] [place] 500 mg PO BID 09/12/20 [History] Selenium 200 mcg PO DAILY 09/12/20 [History] Furosemide [Lasix] 20 mg PO DAILY 09/13/20 [History] Apixaban [Eliquis] 2.5 mg PO BID 30 Days #60 tab 09/17/20 [Rx] Docusate [Colace] 100 mg PO BID PRN #0 cap 09/18/20 [Rx] Metoprolol Tartrate [Lopressor] 12.5 mg PO BID #60 tab 09/18/20 [Rx] Follow up Appointment(s)/Referral(s): Rodrigo Louis MD [Primary Care Provider] - 1-2 days Ralph Brennan MD [STAFF PHYSICIAN] - 2 Weeks Discharge Disposition: TRANSFER TO SNF/ECF
== END 2020-09-18 16:20 | DRG 683 ==
LOC: EC 18:33 → 6NMEDSUR 21:57 → OBSVTOIN 09-15 10:40
PROVIDERS: ADMIT Hospitalist; ATTEND Hospitalist
DX: N17.9 Acute kidney failure, unspecified (principal); E87.1 Hypo-osmolality and hyponatremia; Z68.41 Body mass index [BMI] 40.0-44.9, adult; D63.1 Anemia in chronic kidney disease; E11.22 Type 2 diabetes mellitus with diabetic chronic kidney disease; I95.9 Hypotension, unspecified; I48.0 Paroxysmal atrial fibrillation; E86.0 Dehydration; E66.9 Obesity, unspecified; D53.9 Nutritional anemia, unspecified; N18.32 Chronic kidney disease, stage 3b; Z20.822 Contact with and (suspected) exposure to COVID-19; I12.9 Hypertensive chronic kidney disease with stage 1 through stage 4 chronic kidney disease, or unspecified chronic kidney disease; G47.33 Obstructive sleep apnea (adult) (pediatric); E87.5 Hyperkalemia; R07.89 Other chest pain; I08.3 Combined rheumatic disorders of mitral, aortic and tricuspid valves; E86.1 Hypovolemia; N13.30 Unspecified hydronephrosis; E87.70 Fluid overload, unspecified; R55 Syncope and collapse; N40.1 Benign prostatic hyperplasia with lower urinary tract symptoms; R33.8 Other retention of urine; S42.201D Unspecified fracture of upper end of right humerus, subsequent encounter for fracture with routine healing; E78.5 Hyperlipidemia, unspecified; I25.2 Old myocardial infarction; Z79.84 Long term (current) use of oral hypoglycemic drugs; Z79.899 Other long term (current) drug therapy; Z71.3 Dietary counseling and surveillance; W18.30XD Fall on same level, unspecified, subsequent encounter
CPT/HCPCS: 36415; 71275; 74174; 76770; 80048; 80053; 81003; 82570; 82607; 83735; 84300; 84484; 85025; 85610; 85730; 87205; 87635; 93005; 93306; 94640; 94660; 94760; 99285

== ENCOUNTER 2020-10-22 01:06 | Emergency (ER) | payer MEDICARE, BC ==
[2020-10-22] MEDS ORDERED: SODIUM BICARB 8.4% 50 ML SYR (1 MEQ/ML) IV STA ×2 (01:26→01:28)
--- NOTE | 2020-10-22 01:38 | ED ---
CPR HPI - General Chief Complaint: Cardiac Arrest/CPR Stated Complaint: Cardiac Arrest Time Seen by Provider: 10/22/20 01:20 Source: EMS, RN notes reviewed, old records reviewed Mode of arrival: EMS Limitations: altered mental status, physical limitation - History of Present Illness Initial Comments: This is a 80-year-old male brought in by EMS. Patient has no history of hospitalizations or was at bedside although he didn't get hospitalizable year ago for something with his heart. Symptoms any significant difficulty with his kidneys. Patient went to the bathroom went to go sign the bedside commode and became unresponsive went to the ground and EMS was called. Patient was intubated by EMS and ACLS was started, patient was given epinephrine 6 since 3 return of spontaneous circulation here in the ER. Patient never had any neurological activity per EMS. is at bedside states patient never wanted to be on life support MD Complaint: found unresponsive, stopped breathing, collapsed during activity -: hour(s) (1) Place: home Bystander CPR Performed: No AED Applied by Bystander/Edging Supervisor: Yes Shock Advised: No Initial Findings in the Field: unresponsive, no respirations, no pulse ROSC in the Field: Yes (3 times ROSC 4 times CPR) Associated Injuries: No Associated Symptoms: other (none) Treatments Prior to Arrival: epinephrine mgs # (6) - Related Data Home Medications Medication Instructions Recorded Confirmed Allopurinol [Zyloprim] 100 mg PO HS 09/12/20 09/12/20 Cholecalciferol [Vitamin D3 (25 25 mcg PO DAILY 09/12/20 09/12/20 Mcg = 1000 Iu)] Cinnamon Bark [Cinnamon] 500 mg PO DAILY 09/12/20 09/12/20 Cyanocobalamin (Vitamin B-12) 1,000 mcg PO DAILY 09/12/20 09/12/20 [Vitamin B-12] Folic Acid 0.4 mg PO DAILY 09/12/20 09/12/20 Garlic 1 tab PO DAILY 09/12/20 09/12/20 Pioglitazone [Actos] 45 mg PO DAILY 09/12/20 09/12/20 Pravastatin Sodium [Pravachol] 20 mg PO HS 09/12/20 09/12/20 [address] [place] 500 mg PO BID 09/12/20 09/12/20 Selenium 200 mcg PO DAILY 06/23/21 06/23/21 Furosemide [Lasix] 20 mg PO DAILY 09/13/20 09/13/20 Previous Rx's Medication Instructions Recorded Apixaban [Eliquis] 2.5 mg PO BID 30 Days #60 tab 09/17/20 Docusate [Colace] 100 mg PO BID PRN #0 cap 09/18/20 Metoprolol Tartrate [Lopressor] 12.5 mg PO BID #60 tab 09/18/20 Allergies Allergy/AdvReac Type Severity Reaction Status Date / Time No Known Allergies Allergy Verified 10/22/20 01:10 Review of Systems ROS Statement: Those systems with pertinent positive or pertinent negative responses have been documented in the HPI. ROS Other: All systems not noted in ROS Statement are negative. Past Medical History Past Medical History: Diabetes Mellitus, Hypertension, Renal Disease Additional Past Medical History / Comment(s): right humerus fracture History of Any Multi-Drug Resistant Organisms: None Reported Past Surgical History: No Surgical Hx Reported Past Anesthesia/Blood Transfusion Reactions: No Reported Reaction Past Psychological History: No Psychological Hx Reported Smoking Status: Never smoker Past Alcohol Use History: Occasional General Exam Limitations: altered mental status, physical limitation General appearance: obtunded, in distress Head exam: Present: atraumatic, normocephalic, normal inspection Eye exam: Present: normal appearance, other (fixed and dilated). Absent: scleral icterus, conjunctival injection, periorbital swelling ENT exam: Present: normal exam, mucous membranes moist Neck exam: Present: normal inspection. Absent: tenderness, meningismus, lymphadenopathy GI/Abdominal exam: Present: soft. Absent: distended, tenderness, guarding, rebound, rigid Rectal exam: Present: deferred Extremities exam: Present: normal inspection, full ROM, normal capillary refill. Absent: tenderness, pedal edema, joint swelling, calf tenderness Back exam: Present: normal inspection Skin exam: Present: warm, dry, intact, normal color. Absent: rash Course Vital Signs 10/22/20 01:07 O2 Sat by Pulse 94 L Oximetry - Reevaluation(s) Reevaluation #1: 10/22/20 01:34 Medical record is reviewed Reevaluation #2: 10/22/20 01:34 Month patient's is at bedside who continues reiterated patient never wanted CPR to be on life support. Decision is made in conjunction with the to cease resuscitative efforts at this time Patient's pupils are fixed and dilated Apneic No heart sounds No pulse Ultrasound shows cardiac standstill Patient is pronounced at 0 118 Reevaluation #3: 10/22/20 01:37 Paged out for patient's primary care Reevaluation #4: 10/22/20 01:37 Did speak with medical billing assistant regarding patient's passing Medical Decision Making - Medical Decision Making 80-year-old male DF for evaluation. Patient is pronounced here in the emergency department after mild resuscitative effort is started, with at bedside who states patient does not want to have life support patient has been having greater than hour at this time of CPR Disposition Clinical Impression: Cardiac arrest Disposition: Condition: Critical Referrals: Rodrigo Louis MD [Primary Care Provider] - 1-2 days Preliminary Cause of : CPA
== END 2020-10-22 07:50 | disposition expired ==
LOC: EC 01:06
DX: I46.9 Cardiac arrest, cause unspecified (principal); E11.9 Type 2 diabetes mellitus without complications; I10 Essential (primary) hypertension; Z79.01 Long term (current) use of anticoagulants; Z79.84 Long term (current) use of oral hypoglycemic drugs; Z79.899 Other long term (current) drug therapy
CPT/HCPCS: 96374; 99285